=== PATIENT | female | born 1940 | race Caucasian/White ===

== ENCOUNTER 2019-08-26 14:54 | Outpatient (CLI) | payer MEDICARE, SELFPAY | END 2019-08-26 14:55 | disposition home or self-care (01) | LOC: CHSCARD 14:56 | PROVIDERS: PCP Internal Medicine; Visit Provider Internal Medicine | DX: I49.9 Cardiac arrhythmia, unspecified (principal) | CPT/HCPCS: 93225; 93226 ==

== ENCOUNTER 2019-09-21 21:55 | Emergency (ER) | payer MEDICARE, SELFPAY ==
--- NOTE | ~2019-09-21 | CT_ITS ---
EXAMINATION: CT brain wo con DATE: 09/21/2019 22:44 INDICATION: Presyncope TECHNIQUE: Computed tomography (CT) of the head was performed without intravenous contrast. Sagittal and coronal reconstructions were performed. The mA was adjusted according to patient size. Iterative reconstruction technique was employed. The dose-length product was 605.33 mGy-cm. COMPARISON: head CT dated 11/18/2018 FINDINGS: No acute intracranial hemorrhage, acute infarction or abnormal extra axial fluid collection. There is mild scattered white matter hypoattenuation consistent with chronic small vessel ischemic disease. S ymmetric prominence of the sulci consistent with mild age-appropriate diffuse cerebral volume loss. V entricles are normal and symmetric. No mass/mass effect. Changes of bilateral intraocular lens replac ement. The orbits and mastoid air cells are normal. Mild mucosal thickening the bilateral ethmoid sin uses. Intracranial calcified cerebral atherosclerosis is noted. IMPRESSION: 1. No acute intracranial process. 2. Age-related changes including mild to moderate diffuse volume loss and mild scattered white matter hypoattenuation consistent with chronic small vessel ischemic disease. Reviewed, dictated and finalized at location A. CIATE MEDICAL DIRECTOR IMPRESSION: 1. No acute intracranial process. 2. Age-related changes including mild to moderate diffuse volume loss and mild scattered white matter hypoattenuation consistent with chronic small vessel isc hemic disease.
--- NOTE | ~2019-09-21 | XR_ITS ---
EXAMINATION: XR chest 1V portable DATE: 09/21/2019 22:44 INDICATION: Generalized weakness TECHNIQUE: frontal view of the chest was obtained. COMPARISON: Chest radiograph dated 10/08/2016 FINDINGS: The lungs remain clear with no focal airspace opacities, pulmonary edema, pleural effusion or pneumot horax. The cardiomediastinal silhouette is normal. Moderate thoracic spondylosis. IMPRESSION: 1. No acute cardiopulmonary disease. Reviewed, dictated and finalized at location A. AURANT LINE SERVER
[2019-09-21 21:55] VITALS: BP 132/75; PULSE 80; RESP 28; TEMP 36.7; O2SAT 100
--- NOTE | 2019-09-21 22:08 | ECG_ITS ---
Measurements Intervals [place] Rate: 80 P: [place]: 0 QRS: -35 QRSD: 98 T: 6 QT: 392 QTc: 453 Interpretive Statements SINUS RHYTHM WITH SINUS ARRHYTHMIA ATRIAL PREMATURE COMPLEXES LEFT AXIS DEVIATION LOW QRS VOLTAGE IN PRECORDIAL LEADS BORDERLINE ST-T WAVE ABNORMALITY- INFERIOR LEADS BASELINE ARTIFACT- I, II, III, AVR, AVL, AVF, V4-V6 BORDERLINE ECG Electronically Signed On 09-22-2019 6:57:54 DEBURRER STRIP by Carson Ochoa D.O.
--- NOTE | 2019-09-21 22:37 | ED.GENADULT ---
HPI - General Adult General Chief complaint: Weakness Stated complaint: amb Source: patient and family Mode of arrival: EMS Limitations: other (expressive aphasia) History of Present Illness HPI narrative: Shivering all day today, felt cold. AT 21:00 while brushing teeth became weak, felt lightheaded, fell back, being held by but hit back of her head on tile. believes she was unconscious for brief period. No seizure activity. Received a shingles vaccine in the right deltoid this AM. Within an hour she began having sharp shoulder pain rated #7/10, made worse with movement. states 10/2018 she had an episode where she had trouble saying things, e.g. her daughter's name. This was assoc. with a migraine headche where she could not say the name of her daughter. Transferred to [facility]. Symptoms resolved within hours. Dx. as migraine related episode. Related Data Home Medications Medication Instructions Recorded Confirmed aspirin [Aspirin Low Dose] 81 mg PO DAILY 09/21/19 09/21/19 cranberry 500 mg PO DAILY 09/21/19 09/21/19 lisinopril 10 mg PO DAILY 09/21/19 09/21/19 metoprolol succinate 12.5 mg PO DAILY 09/21/19 09/21/19 ravzdkegoeme-Zo-lmfu-minerals 1 tablet PO DAILY 09/21/19 09/21/19 [Multiple Vitamin, Womens] Allergies Allergy/AdvReac Type Severity Reaction Status Date / Time No Known Allergies Allergy Verified 09/21/19 22:41 Review of Systems Constitutional: Constitutional: Reports as per HPI and Reports headache(s) (not today) Eyes: Eyes: Denies blurry vision ENT: Reports system reviewed and no additional complaints, except as documented Cardiovascular: Cardiovascular: Denies chest pain, Denies rapid heart rate, Denies leg edema and Denies dyspnea Respiratory: Respiratory: Denies chest congestion and Denies cough Gastrointestinal: Gastrointestinal: Denies abdominal pain, Denies diarrhea, Denies vomiting and Reports other (nausea) Genitourinary: Genitourinary: Denies dysuria Musculoskeletal: Musculoskeletal: Reports no additional musculoskeletal complaints Integumentary/Breasts: Skin/Breast: Denies rash Neurologic: Reports system reviewed and no additional complaints, except as documented Psychiatric: Psychiatric: Denies anxiety and Denies depression Endocrine: Endocrine: Denies flushing Hematologic/Lymphatic: Hematologic/Lymphatic: Denies easy bleeding and Denies easy bruising Allergic/Immunologic: Allergic/Immunologic: Denies urticaria PMFSH Past Medical History Medical History (Updated 09/22/19 @ 04:29 by Misbah Winters MD) Atrial fibrillation Hypertension Migraine Transient global amnesia Social History Social History (Updated 09/22/19 @ 01:26 by Misbah Winters MD) Additional living arrangements comments: Lives with Gender identity (if verbalized by the patient): Female Exam Narrative: Exam Narrative: On arrival pt. alert and oriented, with occasional difficulties with word finding. Holding left arm adducted and internally rotated. Const: General: cooperative Nutritional Appearance: well nourished Orientation/consciousness: patient oriented x3 Limitations: physical limitations (c/o pain with movement of her left shoulder) HENMT: Head: normal to inspection, atraumatic, no contusions, no lacerations, no raccoon eyes, no scalp lesions and no scalp tenderness Ears: hearing grossly normal bilaterally and TM's normal bilaterally General nose exam: Normal external nose present Face and sinus: normal facial exam and sinuses nontender Mouth: Yes Normal oral and palatal mucosa present, Yes lip normal and Yes moist mucous membranes Throat: posterior oropharynx normal Eyes: General: appearance normal, both eyes and all related structures Visual Chowdary: normal visual chowdary by confrontation Alignment and Position: alignment normal Periorbital: periorbital findings normal Pupils: Equal, round and reactive pupils present EOM: EOMs intact
--- NOTE | 2019-09-21 22:40 | PC.NURSE ---
Pt's states pt did strike posterior aspect of head on tiled wall and possibly had LOC. States near syncope occurred at approx 2100. Also reports hx of transient amnesia diagnosed in October 2018.
[2019-09-21 22:56] LABS: Basophils Absolute Auto 0.03 K/mm3 (0.00-0.10); Basophils Percent Auto 0.2 % (0.0-1.0); Eosinophils Absolute Auto 0.01 K/mm3 (0.02-0.50); Eosinophils Percent Auto 0.1 % (1.0-6.0); Hematocrit 41.5 % (35.0-42.0); Hemoglobin 14.6 g/dL (11.7-13.8); Immature Granulocyte Absolute 0.11 K/mm3 (0.00-0.00); Immature Granulocyte Percent A 0.6 % (0.0-0.0); Lymphocytes Absolute Auto 1.07 K/mm3 (1.10-4.50); Lymphocytes Percent Auto 5.5 % (18.0-42.0); Mean Corpuscular HGB Conc 35.2 g/dL (32.0-36.0); Mean Corpuscular Hemoglobin 32.2 pg (27.0-31.0); Mean Corpuscular Volume 91.4 fL (78.0-102.0); Mean Platelet Volume 10.1 fl (9.2-11.8); Monocytes Absolute Auto 1.36 K/mm3 (0.10-0.90); Neutrophils Absolute Auto 16.9 K/mm3 (1.7-7.2); Neutrophils Percent Auto 86.6 % (50.0-70.0); Platelet Count Result 174 K/mm3 (150-420); Red Blood Count 4.54 M/mm3 (4.20-5.40); Red Cell Distribution Width 13.4 % (11.6-14.4); White Blood Count 19.5 K/mm3 (4.8-10.8)
[2019-09-21 23:13] LABS: Alanine Aminotransferase 38 U/L (14-59); Albumin Level 3.7 g/dL (3.4-5.0); Alkaline Phosphatase 65 U/L (46-116); Anion Gap 18.1 mmol/L (7-16); Aspartate Amino Transferase 40 U/L (15-37); Bilirubin,Total 1.2 mg/dL (0.00-1.00); Blood Urea Nitrogen 16 mg/dL (7-18); Calcium 9.1 mg/dL (8.5-10.1); Carbon Dioxide 21 mmol/L (21-32); Chloride 102 mmol/L (98-108); Estimated CRCL calculation 29 ml/min; Estimated Glomerular Filt Rate 47; Glucose 133 mg/dL (70-99); Osmolality Calculated 287 mOsm/kg (285-295); Potassium 4.1 mmol/L (3.5-5.1); Sodium 137 mmol/L (136-145); Total Protein 7.4 g/dL (6.4-8.2)
[2019-09-21 23:20] LABS: Troponin I < 0.02 ng/mL (0.00-0.056)
[2019-09-21 23:21] VITALS: BP 117/59; PULSE 90; RESP 24; O2SAT 99
--- NOTE | 2019-09-21 23:21 | PC.NURSE ---
Pt resting. AOx3. Speech clear. MAEx4. Awaiting dispo per ERP.
[2019-09-21 23:33] LABS: Lactic Acid 3.3 mmol/L (0.4-2.0)
--- NOTE | 2019-09-21 23:50 | PC.NURSE ---
Pt taken to bathroom via w/c. Gait steady. c/o pain to LUE at site of Shingles vaccine, otherwise no c/o.
[2019-09-21 23:56] LABS: Add Urine Microscopic? YES; Appearance Urine Clear (Clear); Bilirubin Urine Negative (Negative); Blood Urine Negative (Negative); Color Urine Yellow (Yellow); Glucose Urine UA Negative (Negative); Ketones Urine 1+ (Negative); Leukocyte Esterase Ur Trace LEU/UL (Negative); Nitrate Urine Negative (Negative); Protein Urine Negative (Negative); Specific Grav Ur 1.015 (1.010-1.020); Urobilinogen Urine 0.2 mg/dL (0.2-1.0); pH Urine 8.5 (5.0-8.0)
[2019-09-22] VITALS (8 sets, daily range): BP systolic 104–131; BP diastolic 57–82; PULSE 82–89; RESP 16–20; TEMP 37.6; O2SAT 98–100
[2019-09-22 00:02] LABS: Bacteria Urine Trace /hpf; RBC Urine 0-2 /hpf (0-2); Squamous Epithelial Cell Urine None seen /hpf (Few)
[2019-09-22] MEDS: ACETAMINOPHEN 325 MG TABLET PO (00:03)
--- NOTE | 2019-09-22 00:25 | PC.NURSE ---
Pt states LUE is feeling much better after receiving Tylenol. NADN. Waiting for dispo per ER physician.
[2019-09-22] MEDS: SODIUM CHLORIDE 0.9% IV 1,000 ML 500 ML IV CONT ×2 (00:32→03:09)
--- NOTE | 2019-09-22 00:41 | PC.NURSE ---
Pt sleeping, SpO2 85%. Arouses easily to verbal stim. SpO2 immediately increased to 96% RA upon waking pt. Placed on 2L via NC at this time.
--- NOTE | 2019-09-22 00:59 | PC.NURSE ---
Dr Winters at bedside talking with pt and re: plan of care.
--- NOTE | 2019-09-22 01:13 | PC.NURSE ---
[facility] called per Dr Winters's request. Per Zaina, [facility], no beds currently available at this time. Will place pt on wait list.
--- NOTE | 2019-09-22 01:18 | PC.NURSE ---
Call placed to [facility] electrician powerhouse per Dr Winters request. Waiting call back from hospitalist.
--- NOTE | 2019-09-22 02:16 | PC.NURSE ---
To bathroom via w/c. Gait steady while in bathroom. Return to room. Spoke with housekeeper head at [facility] who states hospitalist is with a critical pt and will call as soon as she is available. Dr Winters and pt aware.
--- NOTE | 2019-09-22 02:54 | PC.NURSE ---
CM now shows NSR with occasional PAC, rate 87. Dr Winters aware.
--- NOTE | 2019-09-22 02:55 | PC.NURSE ---
Read back verbal order Dr Winters: re-assess lung sounds, if clear then infuse second liter NS at 500mL/hr.
--- NOTE | 2019-09-22 03:20 | PC.NURSE ---
[facility] returning call at this time.
--- NOTE | 2019-09-22 03:27 | PC.NURSE ---
Read back verbal order Dr Winters: increase IVF rate to w/o for remainder of second liter NS.
--- NOTE | 2019-09-22 03:39 | PC.NURSE ---
Dr Oneal speaking with Dr Winters at this time per [facility] hospitalist request.
--- NOTE | 2019-09-22 03:47 | PC.NURSE ---
Room assignment rcvd from [facility] hothouse worker. Face sheet faxed as requested.
--- NOTE | 2019-09-22 03:47 | PC.NURSE ---
Amb to bathroom with steady gait. Evans and soda provided upon return to exam room. Awaiting room assignment at [facility].
--- NOTE | 2019-09-22 04:05 | PC.NURSE ---
Report to ATA Burt 2nd floor at [facility].
--- NOTE | 2019-09-22 04:15 | PC.NURSE ---
[facility] called for transport to [facility].
[2019-09-22] MEDS: SODIUM CHLORIDE 0.9% IV 1,000 ML 125 ML IV CONT (04:30)
--- NOTE | 2019-09-22 04:30 | PC.NURSE ---
Report to [facility]. Care transferred at this time.
== END 2019-09-22 04:43 | disposition short-term general hospital (02) ==
PROVIDERS: Emergency Provider Family Medicine; PCP Internal Medicine
DX: G45.9 Transient cerebral ischemic attack, unspecified (principal); A41.9 Sepsis, unspecified organism; R55 Syncope and collapse; I48.91 Unspecified atrial fibrillation; I10 Essential (primary) hypertension
CPT/HCPCS: 36415; 70450; 71045; 80053; 81001; 83605; 84484; 85025; 87040; 93005; 96361; 96365; 96367; 99285; A9270; J2543; J3370; J7030

== ENCOUNTER 2019-09-22 05:20 | Inpatient (IN) | payer MEDICARE, SELFPAY ==
[2019-09-22] VITALS (8 sets, daily range): BP systolic 120–127; BP diastolic 42–78; PULSE 77–119; RESP 18–20; TEMP 36.4–37.7; O2SAT 98–100; BMI 27.8
--- NOTE | 2019-09-22 | ECHO_ITS ---
Patient Info Name: Lucia Salas Age: 79 years : 1940 Gender: Female Ht: 60 in Wt: 143 lbs BSA: 1.68 m2 HR: 76 bpm BP: 124 / 47 mmHg Heart Rhythm: Sinus Arrhythmia Technical Quality: Fair Exam Date: 09/22/2019 10:24 AM Exam Location: [facility] Card Pulmonary Patient Status: Inpatient Admit Date: 09/22/2019 Staff Ordering Physician: Mary Jo Wolf PA-C Computer Recycling Worker: Sam Del Cid RDCS Attending Provider: Mary Jo Wolf PA-C Exam Type: CA echo doppler color flow Study Info Indications R55 - Syncope and collapse Complete two-dimensional, color flow and Doppler transthoracic echocardiogram is performed. History/Risk Factors Syncope and collapse; possible TIA, Afib. Summary 1. Left ventricular chamber dimension is normal. 2. Left ventricular systolic function is normal, estimated at 60-65%. 3. The left ventricular diastolic function is grade I diastolic dysfunction. 4. E/e' 8 is minimally elevated. 5. Left atrial chamber dimension is mildly enlarged. 6. There is mild tricuspid valve regurgitation. 7. No pulmonary hypertension, estimated pulmonary arterial systolic pressure is 35 mmHg. 8. Small atheroma in anterior aortic root. Left Ventricle E/e' 8 is minimally elevated. Left ventricular chamber dimension is normal. Left ventricular systolic function is normal, estimated at 60-65%. The left ventricular diastolic function is grade I diastolic dysfunction. Right Ventricle Right ventricular chamber dimension is normal. Right ventricular systolic function is normal. Left Atria Left atrial chamber dimension is mildly enlarged. Right Atria Right atrial chamber dimension is normal. Aortic Valve The aortic valve is trileaflet. There is no aortic valve stenosis. There is no aortic valve regurgitation. Pulmonic Valve There is no pulmonic regurgitation. Mitral Valve There is no mitral valve stenosis. There is no mitral valve regurgitation. Tricuspid Valve There is mild tricuspid valve regurgitation. No pulmonary hypertension, estimated pulmonary arterial systolic pressure is 35 mmHg. Pericardium/Pleural There is no pericardial effusion. Inferior Vena Cava Normal inferior vena cava with >50% collapse upon inspiration consistent with normal right atrial pressure, 5 mmHg. Aorta Small atheroma in anterior aortic root. The aortic root size at the sinus of Valsalva is normal. Left Ventricular Outflow Tract Name Value Normal LVOT 2D LVOT Diameter 1.8 cm LVOT Doppler LVOT Peak Gradient 9 mmHg LVOT Mean Gradient 5 mmHg LVOT VTI 28 cm LVOT VTI/AV VTI Ratio 0.9 LVOT Stroke Volume 72 ml Mitral Valve Name Value Normal MV Doppler MV Decel [place] 2
--- NOTE | ~2019-09-22 | US_ITS ---
EXAMINATION: US carotid duplex BI DATE: 09/22/2019 14:46 INDICATION: Syncope. TECHNIQUE: Grayscale, color Doppler, and pulsed Doppler images of the cervical carotid arteries were obtained. The degree of vessel stenosis is placed in one of the following categories: normal, <50%, 5 0-69%, >=70% but less than near-occlusion, near-occlusion, or total occlusion. Note that percent sten osis relative to normal distal artery lumen diameter is indirectly measured from velocity measurement s as described by Rogelio, et al. Radiology 2003; 229:340-346. COMPARISON: Ultrasound 08/31/2018 FINDINGS: RIGHT: The right common carotid artery (CCA) peak systolic velocity (PSV) is 65 cm/s. The right internal car otid artery (ICA) PSV is 84 cm/s. The right ICA end-diastolic velocity (EDV) is 26 cm/s. The right IC A/CCA PSV ratio is 1.3. Grayscale and color Doppler images yield an estimate of <50% diameter reducti on from plaque in the ICA. There is antegrade flow in the right vertebral artery. LEFT: The left CCA PSV is 83 cm/s. The left ICA PSV is 97 cm/s. The left ICA EDV is 29 cm/s. The left ICA/C CA PSV ratio is 1.2. Grayscale and color Doppler images yield an estimate of <50% diameter reduction from plaque in the ICA. There is antegrade flow in the left vertebral artery. IMPRESSION: 1. <50% stenosis in the right internal carotid artery. 2. <50% stenosis in the left internal carotid artery. Reviewed, dictated and finalized at location A. REEL OPERATOR
--- NOTE | ~2019-09-22 | XR_ITS ---
EXAMINATION: XR shoulder LT min 2V DATE: 09/22/2019 07:37 INDICATION: Septic arthritis of left shoulder. TECHNIQUE: 4 views of left shoulder were obtained. COMPARISON: None. FINDINGS: Bone alignment is normal. No fracture. There is mild osteoarthritis of glenohumeral joint a nd acromioclavicular joint. There is mild atelectasis in left lower lung zone. IMPRESSION: 1. Mild polyarticular osteoarthritis. Reviewed, dictated and finalized at location A. ATIONAL AID
--- NOTE | 2019-09-22 05:50 | ADMGEN ---
This patient, Lucia Salas, was admitted to Medical Room 252-01. Patient/family oriented to hospital policies and general routines including ID bracelet, bed and alarms, visiting hours, pain management, procedures, bathroom and other care routines, personal items, smoking policy, room service/diet, and visiting hours. Valuables list has been completed. Information on how to activate the Rapid Response Team has been discussed. Patient/Family are encouraged to report perceived risks to care and to ask questions if they do not understand what they are told or what they should do.
[2019-09-22] MEDS: SODIUM CHLORIDE 0.9% IV 1,000 ML 100 ML IV CONT ×2 (07:57→18:35)
[2019-09-22] MEDS: ACETAMINOPHEN 325 MG TABLET 650 MG PO (08:07)
[2019-09-22] MEDS: METOPROLOL SUCCINATE EXT REL 12.5 MG TABCR PO (08:08)
[2019-09-22] MEDS: lisinopriL 10 MG TABLET PO (08:08)
[2019-09-22 08:21] LABS: Basophils Percent Auto 0.1 % (0.2-1.2); Eosinophils Percent Auto 0.1 % (0-4.4); Hematocrit 37.5 % (37.0-47.0); Hemoglobin 12.8 g/dL (12.0-15.0); Immature Granulocyte Absolute 0.08 K/mm3 (0.00-0.031); Immature Granulocyte Percent A 0.5 % (0-0.5); Lymphocytes Absolute Auto 1.48 K/mm3 (0.9-3.2); Lymphocytes Percent Auto 9.4 % (18.3-44.2); Mean Corpuscular HGB Conc 34.1 g/dl (32-36); Mean Corpuscular Hemoglobin 31.5 pg (26-34); Mean Corpuscular Volume 92.4 fl (80-100); Mean Platelet Volume 10.2 fl (7.4-10.4); Monocytes Absolute Auto 1.3 K/mm3 (0.1-0.6); Monocytes Percent Auto 8.2 % (2.6-8.5); Neutrophils Absolute Auto 12.9 K/mm3 (1.3-6.7); Neutrophils Percent Auto 81.7 % (45.5-73.1); Platelet Count Result 162 k/mm3 (150-375); Red Blood Count 4.06 M/mm3 (4.2-5.4); Red Cell Distribution Width 13.8 % (11.5-14.5); White Blood Count 15.8 K/mm3 (4.5-10.0)
[2019-09-22 08:36] LABS: Alanine Aminotransferase 58 U/L (4-35); Albumin Level 3.2 g/dL (3.5-5.1); Alkaline Phosphatase 61 U/L (38-126); Aspartate Amino Transferase 79 U/L (14-36); Bilirubin,Total 1.1 mg/dL (0.2-1.3); Blood Urea Nitrogen 11 mg/dL (7-17); Calcium 8.2 mg/dL (8.4-10.2); Carbon Dioxide 21 mmol/L (22-30); Chloride 106 mmol/L (98-107); Estimated CRCL calculation 40 ml/min; Estimated Glomerular Filt Rate > 60; Glucose 112 mg/dL (65-105); Magnesium 1.9 mg/dL (1.6-2.3); Phosphorus 2.9 mg/dL (2.5-4.5); Potassium 3.8 mmol/L (3.4-5.0); Sodium 137 mmol/L (137-145)
--- NOTE | 2019-09-22 11:23 | PM.IMHP ---
H&P: HPI History of Present Illness Chief complaint: Weakness, left shoulder pain Narrative: Date of Service 09/22/19 The supervising physician for this history and physical is Dr Liu. Ms. Salas is a relatively healthy 79-year-old female with history of hypertension and migraines who presented to the ER at [facility] for evaluation of weakness. She noted that she received a shingles vaccine to her left upper arm yesterday and she developed pain in her left shoulder joint about 1 hour after her vaccination. Her left shoulder pain persisted despite using an ice pack and Tylenol. She notes that she was feeling feverish and having chills at home yesterday but did not take her temperature. Routine labs at [place] showed leukocytosis WBC [id number] which, along with her significant left shoulder pain with any movement, raised concern for an early infection in the joint. Dr. Oneal was contacted and she was transferred to [facility] for orthopedic consultation. She describes a long history of complex migraines dating back to age 16 and notes that she did have a migraine yesterday as well. She describes that she may have passed out briefly yesterday. She felt lightheaded while standing in the bathroom and leaned backwards, her mostly caught her but she did hit the back of her head on the floor. Her family noted that she was a little confused once she regained consciousness. These symptoms have resolved she is back at her baseline this morning. She denies any headaches this morning. She denies any nausea or vomiting and has been tolerating oral intake. She recently had outpatient cardiac workup by Dr. Ricki Lane's office at [facility] in [place]. She notes that her PCP, Dr Cheney, noted her heart skipping beats . She wore a holter monitor earlier this month and was referred to Dr Lane with [facility]. She had her appointment with [facility] in the last 1 week and had an echocardiogram with bubble study on 09/19/19. She has not yet heard back from the trash hauler's office regarding these results. Scanned copy of her Holter monitor results are in the EMR. She denies any chest pain, palpitations, or sensation of rapid heart beats. Today she continues with significant left shoulder pain with much of any movement and she is admitted for management of same. Review of Systems Review of Systems: Narrative: She reports significant left anterior shoulder pain with minimal movement. She otherwise offers no complaints. She specifically denies headache today, dizziness, chest pain, shortness of breath, palpitations, calf tenderness, nausea, vomiting, abdominal pain, diarrhea, constipation, hematochezia, melena, dysuria, or hematuria. Twelve systems were reviewed with pertinent positives and negatives as per HPI. [facility] Past Medical History Medical History (Updated 09/22/19 @ 15:10 by Maldonado Oneal MD) Atrial fibrillation She is unsure whether she was told she had atrial fibrillation in the past. Hypertension Migraine Synovitis of shoulder Transient global amnesia Had an episode 10/2018 of transient aphasia that resolved spontaneously and was felt may have been related to her complex migraines. Surgical History Surgical History H/O breast biopsy Benign H/O cataract removal with insertion of prosthetic lens Around 2008, Bilateral History of mandibular surgery TMJ repair Previous back surgery Around 2016 Family History Family History Mother Heart failure Social History Social History (Updated 09/22/19 @ 11:57 by Mary Jo Wolf PA-C) Social History: Ms. Salas lives at home with her in [place]. 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 She reports around 2 drinks of wine per week; never smoker; no other subst
--- NOTE | 2019-09-22 15:06 | PM.PNORT ---
Progress Note: A&P Assessment and Plan (1) Left shoulder pain: Qualifiers: Chronicity: acute Qualified Code(s): M25.512 - Pain in left shoulder Code(s): M25.512 - Pain in left shoulder Status: Acute (2) Synovitis of shoulder: Code(s): M65.819 - Other synovitis and tenosynovitis, unspecified shoulder Status: Acute Assessment and Plan: patient admitted for elevated white count and low grade fever. T-max of 99.9? over the past 24 hours. White count has improved this morning. Still with severe pain anterolateral left shoulder. Not in the site of the shingles injection but same shoulder. Appears to be severe synovitis but not sure of the connection with the shingles injection. Elevated white count and low grade fever is of concern however there is no redness, swelling or warmth of the left shoulder. Only pain with passive and active motion. Patient denies injury. Antibiotics have been started. We will add anti-inflammatory to the medication regimen. Ice to left shoulder. Continue to follow at this time as it does not appear to be septic arthritis. Subjective Subjective Date/Time Seen: 09/22/19 12:06 79-year-old woman admitted from [facility] yesterday. Asked to see her for left shoulder pain. Patient states she had a shingles vaccine shot in the left posterior deltoid on September 20, 2019 at [facility]. She noted an odd feeling at the time of the shot. Approximately an hour later developed pain over the anterior lateral aspect of the left shoulder. Pain with any movement of the arm. Denies numbness or tingling. Pain progressively got worse over the next 24 hours and she presented to the emergency room in [place]. Found to have low-grade fever and a white count that was elevated and she was transferred to [place] for further evaluation. Patient states her pain is essentially the same. It is sharp over the anterolateral aspect. She has severe pain when she moves the arm. No prior problems with the shoulder. She has had fever and chills well at home. No troubles eating or voiding. Review of Systems Constitutional: Constitutional: Denies fever(s) Eyes: Eyes: Denies blurry vision ENT: Reports Normal hearing present Cardiovascular: Cardiovascular: Denies chest pain and Denies dyspnea Respiratory: Respiratory: Denies dyspnea and Denies wheezing Gastrointestinal: Gastrointestinal: Denies abdominal pain Genitourinary: Genitourinary: Denies urinary urgency Musculoskeletal: Musculoskeletal: Reports as per HPI and Denies numbness Integumentary/Breasts: Skin/Breast: Denies changing lesions and Denies sores Neurologic: Reports Normal hearing present, Denies behavioral changes, Denies confusion, Denies numbness and Denies convulsions Psychiatric: Psychiatric: Denies behavioral changes, Denies confusion and Denies hallucinations Endocrine: Endocrine: Denies heat intolerance Hematologic/Lymphatic: Hematologic/Lymphatic: Denies easy bleeding Allergic/Immunologic: Allergic/Immunologic: Denies wheezing Exam Const: General: healthy appearing; No in distress or confusion Orientation/consciousness: oriented to person, oriented to place, oriented to time and No confusion HENMT: Head: normal to inspection, normocephalic and atraumatic Eyes: Conjunctivae: conjunctivae normal Sclera: sclerae normal Neck: Neck: supple and nontender Resp: Effort & Inspection: normal respiratory effort and no audible wheezes Cardio: Rate: regular rate Rhythm: regular rhythm Skin: General skin exam: no rashes or lesions noted Neuro: General: oriented to person, oriented to place, oriented to time and No confusion Extrem: Right upper extremity: shoulder/upper arm axillary nerve sensory function normal, normal ROM (FF 130, Abd 120, ER 70, IR T7) and other (RC 5/5, Bicep 5/5, Deltoid 5/5, ER 5/5); no tenderness and no swelling, elbow/forearm normal ROM; no tenderness and no swelling, wrist gianluca
--- NOTE | 2019-09-22 19:09 | PC.NURSE ---
On 09/22/2019, the License pending nurse, Marvin Schumacher RN provided care and completed [employer] documentation on this patient. I have reviewed the documentation and agree with the findings.
[2019-09-23] VITALS: PULSE 74
[2019-09-23] MEDS: SODIUM CHLORIDE 0.9% IV 1,000 ML 100 ML IV CONT (02:59)
[2019-09-23 04:00] VITALS: PULSE 75
[2019-09-23 05:37] LABS: Basophils Absolute Auto 0.1 K/mm3 (0.0-0.1); Basophils Percent Auto 0.4 % (0.2-1.2); Eosinophils Absolute Auto 0.2 K/mm3 (0-0.3); Hematocrit 37.2 % (37.0-47.0); Hemoglobin 12.3 g/dL (12.0-15.0); Immature Granulocyte Absolute 0.04 K/mm3 (0.00-0.031); Immature Granulocyte Percent A 0.4 % (0-0.5); Lymphocytes Absolute Auto 1.83 K/mm3 (0.9-3.2); Lymphocytes Percent Auto 16.4 % (18.3-44.2); Mean Corpuscular HGB Conc 33.1 g/dl (32-36); Mean Corpuscular Hemoglobin 31.3 pg (26-34); Mean Corpuscular Volume 94.7 fl (80-100); Mean Platelet Volume 10.9 fl (7.4-10.4); Monocytes Absolute Auto 0.9 K/mm3 (0.1-0.6); Monocytes Percent Auto 8.4 % (2.6-8.5); Neutrophils Absolute Auto 8.1 K/mm3 (1.3-6.7); Neutrophils Percent Auto 72.4 % (45.5-73.1); Platelet Count Result 148 k/mm3 (150-375); Red Blood Count 3.93 M/mm3 (4.2-5.4); Red Cell Distribution Width 14.2 % (11.5-14.5); White Blood Count 11.1 K/mm3 (4.5-10.0)
[2019-09-23 05:44] LABS: Blood Urea Nitrogen 9 mg/dL (7-17); Calcium 8.3 mg/dL (8.4-10.2); Carbon Dioxide 23 mmol/L (22-30); Chloride 107 mmol/L (98-107); Estimated CRCL calculation 40 ml/min; Estimated Glomerular Filt Rate > 60; Glucose 90 mg/dL (65-105); Phosphorus 2.6 mg/dL (2.5-4.5); Potassium 3.7 mmol/L (3.4-5.0); Sodium 138 mmol/L (137-145)
[2019-09-23 06:00] VITALS: BP 130/67; PULSE 77; RESP 20; TEMP 36.2; O2SAT 99
[2019-09-23 08:00] VITALS: PULSE 77; RESP 20; O2SAT 99
[2019-09-23] MEDS: lisinopriL 10 MG TABLET PO (08:35)
[2019-09-23] MEDS: METOPROLOL SUCCINATE EXT REL 12.5 MG TABCR PO (08:36)
--- NOTE | 2019-09-23 10:34 | PM.DS ---
DS: Diagnosis Admitting Diagnosis Admitting Diagnosis: Pain in left shoulder Discharge Diagnosis (1) Left shoulder pain: Qualifiers: Chronicity: acute Qualified Code(s): M25.512 - Pain in left shoulder Code(s): M25.512 - Pain in left shoulder Status: Acute Assessment and Plan: Date of Service 09/23/19 Ms. Salas is a pleasant 79yo F with hypertension and a longstanding history of migraines who presented to the ED at [facility] for evaluation of weakness. She noted that she received a shingles vaccine to her left upper arm day prior to arrival and she developed pain in her left shoulder joint about 1 hour after her vaccination. Her left shoulder pain persisted despite using an ice pack and Tylenol. She notes that she was feeling feverish and having chills at home yesterday but did not take her temperature. Routine labs at [place] showed leukocytosis WBC [id number] which, along with her significant left shoulder pain with any movement, raised concern for an early infection in the joint. She was started on IV vancomycin and Zosyn at that time. Dr. Oneal was contacted and she was transferred to [place] for orthopedic consultation. Exam found her to be exquisitely tender in the left shoulder with both passive and active range of motion, but the joint itself was not particularly swollen, red, or hot to touch. Leukocytosis improved. XR left shoulder demonstrated mild polyarticular osteoarthritis. It was ultimately felt that the joint itself was not infected and Dr Oneal provided a diagnosis of synovitis. She was started on ibuprofen and provided an ice pack. Her pain was a bit improved the following day and she was discharged in stable condition with an appointment to see Dr Oneal in the office in 2 days 09/26/19. She describes a long history of complex migraines dating back to age 16 and notes that she did have a migraine day prior to arrival as well. She describes that she may have passed out briefly. She felt lightheaded while standing in the bathroom and leaned backwards, her mostly caught her but she did hit the back of her head on the floor. Her family noted that she was a little confused once she regained consciousness. These symptoms had resolved she was back at her baseline prior to arrival at [place]. She denied any headaches now, denied any nausea or vomiting and had been tolerating oral intake. CT brain at [place] showed age-related changes consistent with small vessel ischemic disease without any acute intracranial abnormalities. Carotid dopplers were within normal limits. She recently had outpatient cardiac workup by Dr. Ricki Lane's office at [facility] in [place] this week. She notes that her PCP, Dr Cheney, noted her heart skipping beats . She wore a holter monitor earlier this month and was referred to Dr Lane with [facility]. She had her appointment with [facility] in the last 1 week and had an echocardiogram with bubble study on 09/19/19. She has not yet heard back from the ed teacher's office regarding these results. Scanned copy of her Holter monitor results are in the EMR. She did have a 6-beat run of ventricular ectopy demonstrated on telemetry here which was also seen on her recent Holter, with which she was completely asymptomatic. She denied any chest pain, palpitations, or sensation of rapid heart beats. She was hemodynamically stable for discharge 09/23/19 with an appointment to see Dr Oneal in the office 09/26/19. She was instructed to follow up with Dr Lane's office regarding the arrhythmia as well as her PCP. Patient presents with moderate to severe left shoulder pain after having a shingles vaccine to the left deltoid same day with associated fever and chills. Pain is worse with movement. Unsure of relation to the vaccine. Transferred here from [place] for orthopedic consult. Dr Oneal gives the diagnosis of synovitis and recommends anti-in
--- NOTE | 2019-09-27 16:02 | PM.CNOR ---
Assessment and Plan Assessment and plan (1) Synovitis of shoulder: Code(s): M65.819 - Other synovitis and tenosynovitis, unspecified shoulder Status: Acute Assessment and Plan: Assessment and Plan (1) Left shoulder pain: Qualifiers: Chronicity: acute Qualified Code(s): M25.512 - Pain in left shoulder Code(s): M25.512 - Pain in left shoulder Status: Acute (2) Synovitis of shoulder: Code(s): M65.819 - Other synovitis and tenosynovitis, unspecified shoulder Status: Acute Assessment and Plan: patient admitted for elevated white count and low grade fever. T-max of 99.9? over the past 24 hours. White count has improved this morning. Still with severe pain anterolateral left shoulder. Not in the site of the shingles injection but same shoulder. Appears to be severe synovitis but not sure of the connection with the shingles injection. Elevated white count and low grade fever is of concern however there is no redness, swelling or warmth of the left shoulder. Only pain with passive and active motion. Patient denies injury. Antibiotics have been started. We will add anti-inflammatory to the medication regimen. Ice to left shoulder. Continue to follow at this time as it does not appear to be septic arthritis. (2) Left shoulder pain: Qualifiers: Chronicity: acute Qualified Code(s): M25.512 - Pain in left shoulder Code(s): M25.512 - Pain in left shoulder Status: Acute History of Present Illness HPI Consult date: 09/22/19 Requesting physician: Rei Manriquez MD Consult reason: joint pain (left shoulder) Chief complaint: Weakness, left shoulder pain Narrative: Date/Time Seen: 09/22/19 12:06 79-year-old woman admitted from [facility] yesterday. Asked to see her for left shoulder pain. Patient states she had a shingles vaccine shot in the left posterior deltoid on September 20, 2019 at [facility]. She noted an odd feeling at the time of the shot. Approximately an hour later developed pain over the anterior lateral aspect of the left shoulder. Pain with any movement of the arm. Denies numbness or tingling. Pain progressively got worse over the next 24 hours and she presented to the emergency room in [place]. Found to have low-grade fever and a white count that was elevated and she was transferred to [place] for further evaluation. Patient states her pain is essentially the same. It is sharp over the anterolateral aspect. She has severe pain when she moves the arm. No prior problems with the shoulder. She has had fever and chills well at home. No troubles eating or voiding. Review of Systems Constitutional: Constitutional: Denies fever(s) Eyes: Eyes: Denies blurry vision ENT: Reports Normal hearing present Cardiovascular: Cardiovascular: Denies chest pain and Denies dyspnea Respiratory: Respiratory: Denies dyspnea and Denies wheezing Gastrointestinal: Gastrointestinal: Denies abdominal pain Genitourinary: Genitourinary: Denies urinary urgency Musculoskeletal: Musculoskeletal: Reports as per HPI and Denies numbness Integumentary/Breasts: Skin/Breast: Denies changing lesions and Denies sores Neurologic: Reports Normal hearing present, Denies behavioral changes, Denies confusion, Denies numbness and Denies convulsions Psychiatric: Psychiatric: Denies behavioral changes, Denies confusion and Denies hallucinations Endocrine: Endocrine: Denies heat intolerance Hematologic/Lymphatic: Hematologic/Lymphatic: Denies easy bleeding Allergic/Immunologic: Allergic/Immunologic: Denies wheezing [facility] Past Medical History Medical History Atrial fibrillation She is unsure whether she was told she had atrial fibrillation in the past. Hypertension Migraine Synovitis of shoulder Transient global amnesia Had an episode 10/2018 of transient aphasia that resolved spontaneously and was
--- NOTE | 2019-09-29 14:10 | PC.NURSE ---
Blood cx is negative.
== END 2019-09-23 12:50 | disposition home or self-care (01) | DRG 558 ==
PROVIDERS: Physician Assistant; Admitting Provider Internal Medicine; PCP Internal Medicine; Visit Provider Family Medicine
DX: M65.812 Other synovitis and tenosynovitis, left shoulder (principal); R55 Syncope and collapse; G43.909 Migraine, unspecified, not intractable, without status migrainosus; R94.31 Abnormal electrocardiogram [ECG] [EKG]; I10 Essential (primary) hypertension; I48.91 Unspecified atrial fibrillation; Z98.42 Cataract extraction status, left eye; Z98.41 Cataract extraction status, right eye
CPT/HCPCS: 36415; 73030; 80048; 80053; 83735; 84100; 85025; 93306; 93880; 96361; 96365; A9270; G0378; J2543; J7030

== ENCOUNTER 2020-05-15 07:48 | Outpatient (CLI) | payer MEDICARE, SELFPAY ==
[2020-05-15 08:10] LABS: Basophils Absolute Auto 0.09 K/mm3 (0.00-0.10); Basophils Percent Auto 1.6 % (0.0-1.0); Eosinophils Absolute Auto 0.24 K/mm3 (0.02-0.50); Eosinophils Percent Auto 4.2 % (1.0-6.0); Hematocrit 41.6 % (35.0-42.0); Hemoglobin 13.9 g/dL (11.7-13.8); Immature Granulocyte Absolute 0.01 K/mm3 (0.00-0.00); Immature Granulocyte Percent A 0.2 % (0.0-0.0); Lymphocytes Absolute Auto 1.59 K/mm3 (1.10-4.50); Lymphocytes Percent Auto 27.9 % (18.0-42.0); Mean Corpuscular HGB Conc 33.4 g/dL (32.0-36.0); Mean Corpuscular Hemoglobin 32.2 pg (27.0-31.0); Mean Corpuscular Volume 96.3 fL (78.0-102.0); Mean Platelet Volume 10.5 fl (9.2-11.8); Monocytes Absolute Auto 0.54 K/mm3 (0.10-0.90); Monocytes Percent Auto 9.5 % (2.0-11.0); Neutrophils Absolute Auto 3.2 K/mm3 (1.7-7.2); Neutrophils Percent Auto 56.6 % (50.0-70.0); Platelet Count Result 207 K/mm3 (150-420); Red Blood Count 4.32 M/mm3 (4.20-5.40); Red Cell Distribution Width 13.7 % (11.6-14.4); White Blood Count 5.7 K/mm3 (4.8-10.8)
[2020-05-15 08:11] LABS: Appearance Urine Clear (Clear); Bilirubin Urine Negative (Negative); Color Urine Yellow (Yellow); Glucose Urine UA Negative (Negative); Ketones Urine Negative (Negative); Leukocyte Esterase Ur Negative LEU/UL (Negative); Nitrate Urine Negative (Negative); Protein Urine Negative (Negative); Specific Grav Ur 1.025 (1.010-1.020); Urobilinogen Urine 0.2 mg/dL (0.2-1.0)
[2020-05-15 08:15] LABS: Add Urine Microscopic? YES; Bacteria Urine Trace /hpf; Blood Urine Trace-Intact (Negative); RBC Urine 0-2 /hpf (0-2); Squamous Epithelial Cell Urine Occasional /hpf (Few); WBC Urine 0-3 /hpf (0-3)
[2020-05-15 09:37] LABS: Alanine Aminotransferase 29 U/L (14-59); Albumin Level 3.7 g/dL (3.4-5.0); Alkaline Phosphatase 71 U/L (46-116); Anion Gap 11 mmol/L (8-16); Aspartate Amino Transferase 18 U/L (15-37); Bilirubin,Total 0.7 mg/dL (0.00-1.00); Blood Urea Nitrogen 22 mg/dL (7-18); Calcium 9.2 mg/dL (8.5-10.1); Carbon Dioxide 26 mmol/L (21-32); Chloride 105 mmol/L (98-108); Cholesterol 237 mg/dL (0-200); Estimated Glomerular Filt Rate 54; Free T4 Free Thyroxine 1.03 ng/dL (0.76-1.46); Glucose 81 mg/dL (70-99); HDL Direct 82 mg/dL (40-60); LDL Cholesterol Calculated 135 mg/dL (<130); Osmolality Calculated 296 mOsm/kg (285-295); Potassium 4.2 mmol/L (3.5-5.1); Sodium 142 mmol/L (136-145); Thyroid Stimulating Hormone 2.77 uIU/mL (0.36-3.74); Total Protein 6.9 g/dL (6.4-8.2); Triglycerides 101 mg/dL (0-150)
== END 2020-05-15 07:49 | disposition home or self-care (01) ==
LOC: CHSLAB 07:49
PROVIDERS: PCP Internal Medicine; Visit Provider Internal Medicine
DX: E78.5 Hyperlipidemia, unspecified (principal); I10 Essential (primary) hypertension
CPT/HCPCS: 36415; 80053; 80061; 81001; 84439; 84443; 85025

== ENCOUNTER 2020-11-07 07:24 | Outpatient (CLI) | payer MEDICARE, SELFPAY ==
[2020-11-07 07:38] LABS: Add Urine Microscopic? YES; Appearance Urine Clear (Clear); Basophils Absolute Auto 0.06 K/mm3 (0.00-0.10); Basophils Percent Auto 1.1 % (0.0-1.0); Bilirubin Urine Negative (Negative); Blood Urine 1+ (Negative); Color Urine Yellow (Yellow); Eosinophils Absolute Auto 0.19 K/mm3 (0.02-0.50); Eosinophils Percent Auto 3.6 % (1.0-6.0); Glucose Urine UA Negative (Negative); Hematocrit 40.4 % (35.0-42.0); Hemoglobin 13.5 g/dL (11.7-13.8); Immature Granulocyte Absolute 0.01 K/mm3 (0.00-0.00); Immature Granulocyte Percent A 0.2 % (0.0-0.0); Ketones Urine Negative (Negative); Leukocyte Esterase Ur Negative (Negative); Lymphocytes Absolute Auto 1.97 K/mm3 (1.10-4.50); Lymphocytes Percent Auto 36.8 % (18.0-42.0); Mean Corpuscular HGB Conc 33.4 g/dL (32.0-36.0); Mean Corpuscular Hemoglobin 31.4 pg (27.0-31.0); Mean Platelet Volume 10.2 fl (9.2-11.8); Monocytes Absolute Auto 0.52 K/mm3 (0.10-0.90); Monocytes Percent Auto 9.7 % (2.0-11.0); Neutrophils Absolute Auto 2.6 K/mm3 (1.7-7.2); Neutrophils Percent Auto 48.6 % (50.0-70.0); Nitrate Urine Negative (Negative); Platelet Count Result 188 K/mm3 (150-420); Protein Urine Negative (Negative); Red Cell Distribution Width 13.6 % (11.6-14.4); Specific Grav Ur 1.025 (1.010-1.020); Urobilinogen Urine 0.2 mg/dL (0.2-1.0); White Blood Count 5.4 K/mm3 (4.8-10.8); pH Urine 5.5 (5.0-8.0)
[2020-11-07 07:52] LABS: RBC Urine 0-2 /hpf (0-2); WBC Urine None seen /hpf (0-3)
[2020-11-07 07:53] LABS: Bacteria Urine Trace /hpf; Squamous Epithelial Cell Urine Few /hpf (Few)
[2020-11-07 08:45] LABS: Alanine Aminotransferase 29 U/L (14-59); Albumin Level 3.5 g/dL (3.4-5.0); Alkaline Phosphatase 68 U/L (46-116); Anion Gap 8 mmol/L (8-16); Aspartate Amino Transferase 20 U/L (15-37); Bilirubin,Total 0.7 mg/dL (0.00-1.00); Blood Urea Nitrogen 23 mg/dL (7-18); Calcium 8.9 mg/dL (8.5-10.1); Carbon Dioxide 28 mmol/L (21-32); Chloride 106 mmol/L (98-108); Cholesterol 211 mg/dL (0-200); Estimated Glomerular Filt Rate 47; Free T3 2.56 pg/mL (2.18-3.98); Free T4 Free Thyroxine 0.92 ng/dL (0.76-1.46); Glucose 84 mg/dL (70-99); HDL Direct 71 mg/dL (40-60); LDL Cholesterol Calculated 126 mg/dL (<130); Osmolality Calculated 296 mOsm/kg (285-295); Potassium 4.1 mmol/L (3.5-5.1); Sodium 142 mmol/L (136-145); Thyroid Stimulating Hormone 3.65 uIU/mL (0.36-3.74); Total Protein 6.6 g/dL (6.4-8.2); Triglycerides 71 mg/dL (0-150)
[2020-11-10 20:55] LABS: Vitamin D 25 Hydroxy 38 ng/mL (30-100)
== END 2020-11-07 07:25 | disposition home or self-care (01) ==
LOC: CHSLAB 07:25
PROVIDERS: PCP Internal Medicine; Visit Provider Internal Medicine
DX: E78.2 Mixed hyperlipidemia (principal); I10 Essential (primary) hypertension; M81.0 Age-related osteoporosis without current pathological fracture; R94.6 Abnormal results of thyroid function studies; N30.01 Acute cystitis with hematuria
CPT/HCPCS: 36415; 80053; 80061; 81001; 82306; 84439; 84443; 84481; 85025; 87086

== ENCOUNTER 2021-05-20 08:06 | Outpatient (CLI) | payer MEDICARE, SELFPAY ==
[2021-05-20 08:30] LABS: Basophils Absolute Auto 0.06 K/mm3 (0.00-0.10); Basophils Percent Auto 1.3 % (0.0-1.0); Eosinophils Absolute Auto 0.15 K/mm3 (0.02-0.50); Eosinophils Percent Auto 3.2 % (1.0-6.0); Hematocrit 42.1 % (35.0-42.0); Immature Granulocyte Absolute 0.01 K/mm3 (0.00-0.00); Immature Granulocyte Percent A 0.2 % (0.0-0.0); Lymphocytes Absolute Auto 1.54 K/mm3 (1.10-4.50); Lymphocytes Percent Auto 33.2 % (18.0-42.0); Mean Corpuscular HGB Conc 33.3 g/dL (32.0-36.0); Mean Corpuscular Hemoglobin 31.3 pg (27.0-31.0); Mean Corpuscular Volume 94.2 fL (78.0-102.0); Mean Platelet Volume 10.5 fl (9.2-11.8); Monocytes Absolute Auto 0.46 K/mm3 (0.10-0.90); Monocytes Percent Auto 9.9 % (2.0-11.0); Neutrophils Absolute Auto 2.4 K/mm3 (1.7-7.2); Neutrophils Percent Auto 52.2 % (50.0-70.0); Platelet Count Result 194 K/mm3 (150-420); Red Blood Count 4.47 M/mm3 (4.20-5.40); Red Cell Distribution Width 13.9 % (11.6-14.4); White Blood Count 4.6 K/mm3 (4.8-10.8)
[2021-05-20 08:30] LABS: Appearance Urine Clear (Clear); Bilirubin Urine Negative (Negative); Color Urine Light Yellow (Yellow); Glucose Urine UA Negative (Negative); Ketones Urine Negative (Negative); Leukocyte Esterase Ur Negative LEU/UL (Negative); Nitrate Urine Negative (Negative); Protein Urine Negative (Negative); Urobilinogen Urine 0.2 mg/dL (0.2-1.0); pH Urine 6.5 (5.0-8.0)
[2021-05-20 08:39] LABS: Add Urine Microscopic? YES; Blood Urine Trace-Intact (Negative)
[2021-05-20 08:40] LABS: Bacteria Urine Trace /hpf; RBC Urine 0-2 /hpf (0-2); Squamous Epithelial Cell Urine Rare /hpf (Few); WBC Urine None seen /hpf (0-3)
[2021-05-20 10:08] LABS: Alanine Aminotransferase 33 U/L (14-59); Albumin Level 3.6 g/dL (3.4-5.0); Alkaline Phosphatase 69 U/L (46-116); Anion Gap 9 mmol/L (8-16); Aspartate Amino Transferase 23 U/L (15-37); Bilirubin,Total 0.8 mg/dL (0.00-1.00); Blood Urea Nitrogen 20 mg/dL (7-18); Calcium 8.6 mg/dL (8.5-10.1); Carbon Dioxide 28 mmol/L (21-32); Chloride 106 mmol/L (98-108); Cholesterol 210 mg/dL (0-200); Estimated Glomerular Filt Rate 54; Free T4 Free Thyroxine 0.93 ng/dL (0.76-1.46); Glucose 80 mg/dL (70-99); HDL Direct 76 mg/dL (40-60); LDL Cholesterol Calculated 121 mg/dL (<130); Magnesium 2.3 mg/dL (1.8-2.4); Osmolality Calculated 297 mOsm/kg (285-295); Potassium 4.3 mmol/L (3.5-5.1); Sodium 143 mmol/L (136-145); Thyroid Stimulating Hormone 3.13 uIU/mL (0.36-3.74); Total Protein 6.8 g/dL (6.4-8.2); Triglycerides 63 mg/dL (0-150)
[2021-05-20 10:41] LABS: Free T3 2.78 pg/mL (2.18-3.98)
[2021-05-22 13:02] LABS: Vitamin D 25 Hydroxy 39 ng/mL (30-100)
== END 2021-05-20 08:07 | disposition home or self-care (01) ==
LOC: CHSLAB 08:08
PROVIDERS: PCP Internal Medicine; Visit Provider Internal Medicine
DX: M81.0 Age-related osteoporosis without current pathological fracture (principal); I10 Essential (primary) hypertension; R94.6 Abnormal results of thyroid function studies; I49.3 Ventricular premature depolarization
CPT/HCPCS: 36415; 80053; 80061; 81001; 82306; 83735; 84439; 84443; 84481; 85025

== ENCOUNTER 2021-11-12 07:11 | Outpatient (CLI) | payer MEDICARE, SELFPAY ==
[2021-11-12 07:26] LABS: Basophils Absolute Auto 0.07 K/mm3 (0.00-0.10); Basophils Percent Auto 1.2 % (0.0-1.0); Eosinophils Absolute Auto 0.19 K/mm3 (0.02-0.50); Eosinophils Percent Auto 3.3 % (1.0-6.0); Hematocrit 41.8 % (35.0-42.0); Hemoglobin 13.6 g/dL (11.7-13.8); Immature Granulocyte Absolute 0.01 K/mm3 (0.00-0.00); Immature Granulocyte Percent A 0.2 % (0.0-0.0); Lymphocytes Percent Auto 33.5 % (18.0-42.0); Mean Corpuscular HGB Conc 32.5 g/dL (32.0-36.0); Mean Corpuscular Hemoglobin 31.7 pg (27.0-31.0); Mean Corpuscular Volume 97.4 fL (78.0-102.0); Mean Platelet Volume 10.3 fl (9.2-11.8); Monocytes Absolute Auto 0.52 K/mm3 (0.10-0.90); Monocytes Percent Auto 9.2 % (2.0-11.0); Neutrophils Percent Auto 52.6 % (50.0-70.0); Platelet Count Result 198 K/mm3 (150-420); Red Blood Count 4.29 M/mm3 (4.20-5.40); Red Cell Distribution Width 14.3 % (11.6-14.4); White Blood Count 5.7 K/mm3 (4.8-10.8)
[2021-11-12 07:27] LABS: Appearance Urine Clear (Clear); Bilirubin Urine Negative (Negative); Color Urine Light Yellow (Yellow); Glucose Urine UA Negative (Negative); Ketones Urine Negative (Negative); Leukocyte Esterase Ur 1+ (Negative); Nitrate Urine Negative (Negative); Protein Urine Negative (Negative); Urobilinogen Urine 0.2 mg/dL (0.2-1.0)
[2021-11-12 07:32] LABS: Add Urine Microscopic? YES; Bacteria Urine Trace /hpf; Blood Urine Trace-Intact (Negative); RBC Urine 0-2 /hpf (0-2); Squamous Epithelial Cell Urine Few /hpf (Few); WBC Urine 0-3 /hpf (0-3)
[2021-11-12 08:30] LABS: Alanine Aminotransferase 27 U/L (14-59); Albumin Level 3.5 g/dL (3.4-5.0); Alkaline Phosphatase 67 U/L (46-116); Anion Gap 8 mmol/L (8-16); Aspartate Amino Transferase 21 U/L (15-37); Bilirubin,Total 0.7 mg/dL (0.00-1.00); Blood Urea Nitrogen 18 mg/dL (7-18); Calcium 9.1 mg/dL (8.5-10.1); Carbon Dioxide 28 mmol/L (21-32); Chloride 107 mmol/L (98-108); Cholesterol 206 mg/dL (0-200); Estimated Glomerular Filt Rate 52; Free T3 2.67 pg/mL (2.18-3.98); Free T4 Free Thyroxine 0.96 ng/dL (0.76-1.46); Glucose 81 mg/dL (70-99); HDL Direct 77 mg/dL (40-60); LDL Cholesterol Calculated 113 mg/dL (<130); Magnesium 1.9 mg/dL (1.8-2.4); Osmolality Calculated 296 mOsm/kg (285-295); Potassium 4.2 mmol/L (3.5-5.1); Sodium 143 mmol/L (136-145); Thyroid Stimulating Hormone 4.08 uIU/mL (0.36-3.74); Total Protein 6.6 g/dL (6.4-8.2); Triglycerides 82 mg/dL (0-150)
[2021-11-14 15:01] LABS: Vitamin D 25 Hydroxy 39 ng/mL (30-100)
== END 2021-11-12 07:12 | disposition home or self-care (01) ==
LOC: CHSLAB 07:13
PROVIDERS: PCP Internal Medicine; Visit Provider Internal Medicine
DX: R94.6 Abnormal results of thyroid function studies (principal); I10 Essential (primary) hypertension; R30.0 Dysuria; E78.2 Mixed hyperlipidemia; I49.3 Ventricular premature depolarization; M81.0 Age-related osteoporosis without current pathological fracture
CPT/HCPCS: 36415; 80053; 80061; 81001; 82306; 83735; 84439; 84443; 84481; 85025; 87086

== ENCOUNTER 2022-05-26 07:30 | Outpatient (CLI) | payer MEDICARE, SELFPAY ==
[2022-05-26 07:46] LABS: Basophils Absolute Auto 0.06 K/mm3 (0.00-0.10); Basophils Percent Auto 1.1 % (0.0-1.0); Eosinophils Absolute Auto 0.23 K/mm3 (0.02-0.50); Eosinophils Percent Auto 4.2 % (1.0-6.0); Hematocrit 41.1 % (35.0-42.0); Hemoglobin 13.9 g/dL (11.7-13.8); Immature Granulocyte Absolute 0.01 K/mm3 (0.00-0.00); Immature Granulocyte Percent A 0.2 % (0.0-0.0); Lymphocytes Absolute Auto 1.78 K/mm3 (1.10-4.50); Lymphocytes Percent Auto 32.4 % (18.0-42.0); Mean Corpuscular HGB Conc 33.8 g/dL (32.0-36.0); Mean Corpuscular Hemoglobin 31.9 pg (27.0-31.0); Mean Corpuscular Volume 94.3 fL (78.0-102.0); Mean Platelet Volume 10.2 fl (9.2-11.8); Monocytes Absolute Auto 0.61 K/mm3 (0.10-0.90); Monocytes Percent Auto 11.1 % (2.0-11.0); Neutrophils Absolute Auto 2.8 K/mm3 (1.7-7.2); Platelet Count Result 192 K/mm3 (150-420); Red Blood Count 4.36 M/mm3 (4.20-5.40); Red Cell Distribution Width 13.6 % (11.6-14.4); White Blood Count 5.5 K/mm3 (4.8-10.8)
[2022-05-26 07:48] LABS: Appearance Urine Clear (Clear); Bilirubin Urine Negative (Negative); Glucose Urine UA Negative (Negative); Ketones Urine Negative (Negative); Leukocyte Esterase Ur Trace (Negative); Nitrate Urine Negative (Negative); Protein Urine Negative (Negative); Urobilinogen Urine 0.2 mg/dL (0.2-1.0)
[2022-05-26 07:56] LABS: Add Urine Microscopic? YES; Blood Urine Trace-lysed (Negative); Color Urine Light Yellow (Yellow)
[2022-05-26 07:57] LABS: Bacteria Urine Trace /hpf; RBC Urine 0-2 /hpf (0-2); Squamous Epithelial Cell Urine Rare /hpf (Few); WBC Urine 0-3 /hpf (0-3)
[2022-05-26 08:34] LABS: Alanine Aminotransferase 28 U/L (14-59); Albumin Level 3.6 g/dL (3.4-5.0); Alkaline Phosphatase 75 U/L (46-116); Anion Gap 8 mmol/L (8-16); Aspartate Amino Transferase 24 U/L (15-37); Bilirubin,Total 0.7 mg/dL (0.00-1.00); Blood Urea Nitrogen 20 mg/dL (7-18); Calcium 8.8 mg/dL (8.5-10.1); Carbon Dioxide 27 mmol/L (21-32); Chloride 108 mmol/L (98-108); Cholesterol 227 mg/dL (0-200); Estimated Glomerular Filt Rate > 60; Free T3 2.71 pg/mL (2.18-3.98); Free T4 Free Thyroxine 1.07 ng/dL (0.76-1.46); Glucose 84 mg/dL (70-99); HDL Direct 73 mg/dL (40-60); LDL Cholesterol Calculated 138 mg/dL (<130); Osmolality Calculated 297 mOsm/kg (285-295); Potassium 4.3 mmol/L (3.5-5.1); Sodium 143 mmol/L (136-145); Thyroid Stimulating Hormone 3.93 uIU/mL (0.36-3.74); Total Protein 6.8 g/dL (6.4-8.2); Triglycerides 82 mg/dL (0-150)
[2022-05-31 22:25] LABS: Vitamin D 25 Hydroxy 46 ng/mL (30-100)
== END 2022-05-26 07:31 | disposition home or self-care (01) ==
PROVIDERS: PCP Internal Medicine; Visit Provider Internal Medicine
DX: M81.0 Age-related osteoporosis without current pathological fracture (principal); I10 Essential (primary) hypertension; I49.3 Ventricular premature depolarization; E78.2 Mixed hyperlipidemia; R94.6 Abnormal results of thyroid function studies; R30.0 Dysuria
CPT/HCPCS: 36415; 80053; 80061; 81001; 82306; 83735; 84439; 84443; 84481; 85025; 87086; 87088

== ENCOUNTER 2022-11-19 07:47 | Outpatient (CLI) | payer MEDICARE, SELFPAY ==
[2022-11-19 08:04] LABS: Appearance Urine Slightly Cloudy (Clear); Bilirubin Urine Negative (Negative); Blood Urine 1+ (Negative); Glucose Urine UA Negative (Negative); Ketones Urine Negative (Negative); Leukocyte Esterase Ur 3+ LEU/UL (Negative); Nitrate Urine Positive (Negative); Protein Urine Negative (Negative); Urobilinogen Urine 0.2 mg/dL (0.2-1.0)
[2022-11-19 08:13] LABS: Add Urine Microscopic? YES; Color Urine Straw (Yellow)
[2022-11-19 08:14] LABS: Bacteria Urine 2+ /hpf; Squamous Epithelial Cell Urine Occasional /hpf (Few); WBC Urine >75 /hpf (0-3)
[2022-11-19 08:43] LABS: Alanine Aminotransferase 29 U/L (14-59); Albumin Level 3.4 g/dL (3.4-5.0); Alkaline Phosphatase 72 U/L (46-116); Anion Gap 6 mmol/L (8-16); Aspartate Amino Transferase 24 U/L (15-37); Bilirubin,Total 0.7 mg/dL (0.00-1.00); Blood Urea Nitrogen 18 mg/dL (7-18); Calcium 8.9 mg/dL (8.5-10.1); Carbon Dioxide 28 mmol/L (21-32); Chloride 107 mmol/L (98-108); Cholesterol 214 mg/dL (0-200); Estimated Glomerular Filt Rate > 60; Free T3 2.78 pg/mL (2.18-3.98); Free T4 Free Thyroxine 0.94 ng/dL (0.76-1.46); Glucose 85 mg/dL (70-99); HDL Direct 71 mg/dL (40-60); LDL Cholesterol Calculated 125 mg/dL (<130); Osmolality Calculated 292 mOsm/kg (285-295); Potassium 4.1 mmol/L (3.5-5.1); Sodium 141 mmol/L (136-145); Thyroid Stimulating Hormone 4.82 uIU/mL (0.36-3.74); Total Protein 6.7 g/dL (6.4-8.2); Triglycerides 92 mg/dL (0-150)
== END 2022-11-19 07:48 | disposition home or self-care (01) ==
LOC: CHSLAB 07:49
PROVIDERS: PCP Internal Medicine; Visit Provider Internal Medicine
DX: R94.6 Abnormal results of thyroid function studies (principal); I49.3 Ventricular premature depolarization; I10 Essential (primary) hypertension; K21.00 Gastro-esophageal reflux disease with esophagitis, without bleeding; E78.2 Mixed hyperlipidemia; R82.90 Unspecified abnormal findings in urine
CPT/HCPCS: 36415; 80053; 80061; 81001; 84439; 84443; 84481; 87077; 87086; 87088; 87186

== ENCOUNTER 2022-12-20 17:51 | Emergency (ER) | payer MEDICARE, SELFPAY ==
--- NOTE | ~2022-12-20 | CT_ITS ---
EXAMINATION: CT knee RT wo con DATE: 12/20/2022 19:07 INDICATION: Distal right femur fracture TECHNIQUE: High resolution computed tomography (CT) of the right knee was performed without intraveno us contrast. Additional sagittal and coronal reconstructions were performed. Automated exposure contr ol and iterative reconstruction technique were employed. The dose-length product was 542.61 mGy-cm. COMPARISON: Radiographs dated 12/20/2022 FINDINGS: Intra-articular fracture involving the lateral femoral condyle. The minimally displaced fracture frag ment involves the entire weightbearing articular surface of the lateral femoral condyle . The fractur e fragment also includes the majority of the articular surface of the lateral trochlea with portions of the medial and cephalad aspects of the lateral trochlea remaining contiguous the main proximal fem oral fragment. The fracture fragment also includes the majority of the lateral wall of the intercondy lar notch including the footplate of the anterior cruciate ligament. There is minimal likely less yoav n 2 mm incongruity along the articular surface of the lateral trochlea however assessment is limited by the pre-existing subarticular cystic change and cortical irregularity along the lateral trochlea w hich along with similar subarticular cystic change at the patellar apical ridge and lateral facet art icular fracture of overlying high-grade chondromalacia. There is mild comminution with a few small mi ne fragments along the posterior aspect of the main fracture plane. There is up to 8 mm separation of the posterior aspect of the fracture plane with increased coarse along the margins suggesting financial health counselor ior impaction at the time of fracture and subsequent separation. Large layering lipohemarthrosis. IMPRESSION: 1. Minimally displaced intra-articular fracture of the lateral femoral condyle as detailed above. Reviewed, dictated and finalized at location A.
--- NOTE | ~2022-12-20 | XR_ITS ---
EXAMINATION: XR knee RT 3V DATE: 12/20/2022 18:15 INDICATION: Lateral right knee pain post fall TECHNIQUE: Anteroposterior, oblique and crosstable lateral views of the right knee were obtained COMPARISON: None. FINDINGS: Minimally displaced intra-articular fracture involving the lateral femoral condyle with up to [address] ep-off along the cortex at the lateral epicondyle. On the AP projection the fracture appears to exten d medially to the level of the intercondylar eminence. The AP extent of the fracture is uncertain. Pr ominent subarticular cystlike change along the patellar apical ridge suggesting overlying high-grade chondromalacia. Moderate-sized right knee joint effusion. IMPRESSION: 1. Minimally displaced intra-articular fracture involving the lateral femoral condyle. Could consider CT for more definitive assessment of the extent of the fracture and degree of involvement of the art icular surfaces of the trochlea and weightbearing portions of the condyle. Reviewed, dictated and finalized at location A. IMPRESSION: 1. Minimally displaced intra-articular fracture involving the lateral femoral c ondyle. Could consider CT for more definitive assessment of the extent of the f racture and degree of involvement of the articular surfaces of the trochlea and weightbearing portions of the condyle.
[2022-12-20 17:49] VITALS: BP 166/88; PULSE 77; RESP 17; TEMP 36.5; O2SAT 100
--- NOTE | 2022-12-20 18:04 | ED.GENADULT ---
HPI - General Adult General Chief complaint: Extremity Injury, Lower Stated complaint: knee deformity Time Seen by Provider: 12/20/22 18:02 Related Data Home Medications Medication Instructions Recorded Confirmed aspirin 81 mg tablet,delayed 81 mg PO DAILY 09/21/19 09/22/19 release (Kervin Low Dose Aspirin) cranberry 500 mg capsule 500 mg PO DAILY 09/21/19 09/22/19 lisinopril 10 mg tablet 10 mg PO DAILY 09/21/19 09/22/19 metoprolol succinate 25 mg 12.5 mg PO DAILY 09/21/19 09/22/19 tablet,extended release 24 hr azmujjjexwqg-Jm-qpmb-minerals 1 tablet PO DAILY 09/21/19 09/22/19 (Multiple Vitamin, Womens tablet) Allergies Allergy/AdvReac Type Severity Reaction Status Date / Time No Known Allergies Allergy Verified 09/26/19 09:06 [facility] Past Medical History Medical History Atrial fibrillation She is unsure whether she was told she had atrial fibrillation in the past. Hypertension Migraine Synovitis of shoulder Transient global amnesia Had an episode 10/2018 of transient aphasia that resolved spontaneously and was felt may have been related to her complex migraines. Surgical History Surgical History H/O breast biopsy Benign H/O cataract removal with insertion of prosthetic lens Around 2008, Bilateral History of mandibular surgery TMJ repair Previous back surgery Around 2016 Family History Family History Mother Heart failure Social History Social History Social History: Ms. Salas lives at home with her in [place]. 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 She reports around 2 drinks of wine per week; never smoker; no other substance use. Her PCP is Dr Eduardo Cheney and her Egg Breaker is Dr Lane with [facility] in [place]. She designates her daughter, Aminta Castellanos, as her surrogate decision maker and wishes to be full code status. Smoking status: Never smoker Alcohol intake: current Drinks per week: 1 Substance use: never Living arrangements: with family Additional living arrangements comments: Lives with Gender identity (if verbalized by the patient): Female Spiritual care concerns: No Agree to blood products: Yes Course Vital Signs Vital signs: Vital Signs Temperature 97.7 F 12/20/22 17:49 Pulse Rate 77 12/20/22 17:49 Respiratory Rate 17 12/20/22 17:49 Blood Pressure 166/88 H 12/20/22 17:49 Pulse Oximetry 100 12/20/22 17:49 Oxygen Delivery Room Air 12/20/22 17:49 Temperature 97.7 F 12/20/22 17:49 Pulse Rate 77 12/20/22 17:49 Respiratory Rate 17 12/20/22 17:49 Blood Pressure 166/88 H 12/20/22 17:49 Pulse Oximetry 100 12/20/22 17:49 Oxygen Delivery Room Air 12/20/22 17:49 Medical Decision Making Vital Signs Vital Signs: Vital Signs Temperature 97.7 F 12/20/22 17:49 Pulse Rate 77 12/20/22 17:49 Respiratory Rate 17 12/20/22 17:49 Blood Pressure 166/88 H 12/20/22 17:49 Pulse Oximetry 100 12/20/22 17:49 Oxygen Delivery Room Air 12/20/22 17:49 Temperature 97.7 F 12/20/22 17:49 Pulse Rate 77 12/20/22 17:49 Respiratory Rate 17 12/20/22 17:49 Blood Pressure 166/88 H 12/20/22 17:49 Pulse Oximetry 100 12/20/22 17:49 Oxygen Delivery Room Air 12/20/22 17:49 Discharge Plan Discharge Prescriptions: No Action aspirin [Kervin Low Dose Aspirin] 81 mg Tablet,Delayed Release (Dr/Ec) 81 mg PO DAILY lisinopril 10 mg tablet 10 mg PO DAILY metoprolol succinate 25 mg tablet extended release 24 hr 12.5 mg PO DAILY cranberry 500 mg Capsule 500 mg PO DAILY Multiple Vitamin, Womens Tablet 1 tablet PO DAILY ibuprofen 400 mg tablet 400 mg
--- NOTE | 2022-12-20 18:35 | ED.GENADULT ---
HPI - General Adult General Chief complaint: Extremity Injury, Lower Stated complaint: knee deformity Time Seen by Provider: 12/20/22 18:02 History of Present Illness HPI narrative: 82-year-old female presents for evaluation of right knee pain after she slipped off a step and twisted the knee earlier this evening.? There was no fall or head or neck trauma.? She is in overall good health and past medical history only includes hypertension. Related Data Home Medications Medication Instructions Recorded Confirmed aspirin 81 mg tablet,delayed 81 mg PO DAILY 09/21/19 09/22/19 release (Kervin Low Dose Aspirin) cranberry 500 mg capsule 500 mg PO DAILY 09/21/19 09/22/19 lisinopril 10 mg tablet 10 mg PO DAILY 09/21/19 09/22/19 metoprolol succinate 25 mg 12.5 mg PO DAILY 09/21/19 09/22/19 tablet,extended release 24 hr lahbskulyuqi-Gl-nhkm-minerals 1 tablet PO DAILY 09/21/19 09/22/19 (Multiple Vitamin, Womens tablet) Allergies Allergy/AdvReac Type Severity Reaction Status Date / Time No Known Allergies Allergy Verified 12/20/22 18:44 Review of Systems Review of Systems: CONSTITUTIONAL: Denies fever, chills, or sweats. EYES: Denies visual changes, redness, or discharge. ENT: Denies rhinorrhea, congestion, sore throat, or otalgia. CARDIOVASCULAR: Denies chest pain, palpitations, or edema. RESPIRATORY: Denies cough or dyspnea. GASTROINTESTINAL: Denies abdominal pain, nausea, vomiting, or diarrhea. GENITOURINARY: Denies dysuria or hematuria. SKIN: Denies rash or itching. MUSCULOSKELETAL: Denies back pain, joint pain, or myalgia. NEUROLOGIC: Denies headache, numbness, or weakness. PSYCHIATRIC: Denies anxiety or depression. [facility] Past Medical History Medical History (Updated 12/20/22 @ 21:14 by Dhaval Arreola DO) Atrial fibrillation She is unsure whether she was told she had atrial fibrillation in the past. Hypertension Migraine Synovitis of shoulder Transient global amnesia Had an episode 10/2018 of transient aphasia that resolved spontaneously and was felt may have been related to her complex migraines. Surgical History Surgical History H/O breast biopsy Benign H/O cataract removal with insertion of prosthetic lens Around 2008, Bilateral History of mandibular surgery TMJ repair Previous back surgery Around 2017 Family History Family History Mother Heart failure Social History Social History Social History: Ms. Salas lives at home with her in [place]. 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 She reports around 2 drinks of wine per week; never smoker; no other substance use. Her PCP is Dr Eduardo Cheney and her Piece Meat Trimmer is Dr Lane with [facility] in [place]. She designates her daughter, Aminta Castellanos, as her surrogate decision maker and wishes to be full code status. Smoking status: Never smoker Alcohol intake: current Drinks per week: 1 Substance use: never Living arrangements: with family Additional living arrangements comments: Lives with Gender identity (if verbalized by the patient): Female Spiritual care concerns: No Agree to blood products: Yes Exam Narrative: GENERAL: Well-appearing, well-nourished, and in no acute distress. HEAD: Normocephalic, atraumatic. EYES: PERRLA and EOMI. ENT: Nares clear, no rhinorrhea or epistaxis.? Mucous membranes moist. NECK: Supple. CHEST: Clear to auscultation.? No respiratory distress. HEART: Regular rate and rhythm.? No murmur heard.? Normal peripheral pulses. ABDOMEN: Soft, nontender, nondistended, normal active bowel sounds. EXTREMITIES: Normal range of motion.? No edema.? Moderate to severe joint effusion which is worse in the suprapatellar reg
[2022-12-20] MEDS: MORPHINE SULFATE (*CRX) 2 MG/ML INJ IV PUSH ×2 (18:52→22:54)
[2022-12-20 19:33] VITALS: BP 162/91; PULSE 79; RESP 18; O2SAT 100
--- NOTE | 2022-12-20 20:05 | ECG_ITS ---
Measurements Intervals Huger Rate: 78 P: 39 NM: 150 QRS: -37 QRSD: 88 T: 17 QT: 391 QTc: 448 Interpretive Statements SINUS RHYTHM ATRIAL PREMATURE COMPLEXES LEFT AXIS DEVIATION LOW QRS VOLTAGE IN PRECORDIAL LEADS BASELINE ARTIFACT- II, III, V3-V6 BORDERLINE ECG COMPARED TO ECG 09/21/2019 22:05:55 NO SIGNIFICANT CHANGES Electronically Signed On 12-21-2022 7:02:17 CDT by Carson Ochoa D.O.
--- NOTE | 2022-12-20 20:18 | PC.NURSE ---
attempted to call [facility] to give report with no answer
[2022-12-20 20:28] LABS: Basophils Absolute Auto 0.1 K/mm3 (0.0-0.1); Basophils Percent Auto 0.6 % (0.2-1.2); Eosinophils Absolute Auto 0.1 K/mm3 (0-0.3); Eosinophils Percent Auto 0.8 % (0-4.4); Hematocrit 41.2 % (37.0-47.0); Immature Granulocyte Absolute 0.02 K/mm3 (0.00-0.031); Immature Granulocyte Percent A 0.2 % (0-0.5); Lymphocytes Percent Auto 17.5 % (18.3-44.2); Mean Corpuscular Hemoglobin 31.4 pg (26-34); Mean Corpuscular Volume 92.4 fl (80-100); Mean Platelet Volume 10.6 fl (7.4-10.4); Monocytes Absolute Auto 0.5 K/mm3 (0.1-0.6); Monocytes Percent Auto 6.3 % (2.6-8.5); Neutrophils Absolute Auto 6.4 K/mm3 (1.3-6.7); Neutrophils Percent Auto 74.6 % (45.5-73.1); Platelet Count Result 204 k/mm3 (150-375); Red Blood Count 4.46 M/mm3 (4.2-5.4); Red Cell Distribution Width 13.2 % (11.5-14.5); White Blood Count 8.6 K/mm3 (4.5-10.0)
[2022-12-20 20:38] LABS: Anion Gap 5 mmol/L (8-16); Blood Urea Nitrogen 18 mg/dL (7-17); Calcium 9.2 mg/dL (8.4-10.2); Carbon Dioxide 25 mmol/L (22-30); Chloride 107 mmol/L (98-107); Estimated CRCL calculation 38 ml/min; Estimated Glomerular Filt Rate > 60; Glucose 89 mg/dL (65-110); Potassium 3.9 mmol/L (3.4-5.0); Prothrombin Time 13.6 Seconds (11.1-14.7); Sodium 137 mmol/L (137-145)
[2022-12-20 20:39] LABS: Partial Thromboplastin Time 23.5 SECONDS (22.3-36.8)
[2022-12-20 21:31] VITALS: BP 136/81; PULSE 79; RESP 17; O2SAT 98
--- NOTE | 2022-12-20 22:58 | PC.NURSE ---
patient began having increasing pain. spoke with Dr Mccallum and got verbal order for morphine
[2022-12-21 00:35] VITALS: BP 140/67; PULSE 70; RESP 16; O2SAT 100
== END 2022-12-21 00:38 | disposition short-term general hospital (02) ==
PROVIDERS: Emergency Provider Emergency Medicine; PCP Internal Medicine
DX: S72.421A Displaced fracture of lateral condyle of right femur, initial encounter for closed fracture (principal); I48.91 Unspecified atrial fibrillation; I10 Essential (primary) hypertension; W18.40XA Slipping, tripping and stumbling without falling, unspecified, initial encounter
CPT/HCPCS: 36415; 51702; 73562; 73700; 80048; 85025; 85610; 85730; 93005; 96374; 96376; 99285; J2270

== ENCOUNTER 2022-12-24 15:57 | Emergency (ER) | payer MEDICARE, SELFPAY ==
--- NOTE | ~2022-12-24 | XR_ITS ---
EXAM: XR pelvis 1-2V DATE: 12/24/2022 17:06 HISTORY: RIGHT HIP PAIN AFTER FALL . COMPARISON: X-ray right hip 03/04/2016. FINDINGS: Decreased mineralization. Right intertrochanteric fracture with mild medial angulation. No lytic or blastic lesion. Joint spaces are severe lumbar degenerative disc disease. Mild bilateral hi p osteoarthritis. Mild osteitis pubis. No erosion or periosteal change. Soft tissues within normal li mits. IMPRESSION: Intertrochanteric fracture of the right hip. Reviewed, dictated and finalized at location K.
--- NOTE | ~2022-12-24 | CT_ITS ---
EXAMINATION: CT pelvis wo con DATE: 12/24/2022 17:22 INDICATION: Trauma, right hip pain TECHNIQUE: Computed tomography (CT) of the pelvis was performed without intravenous contrast. Automat ed exposure control and iterative reconstruction technique were employed. The dose-length product was x-rayed pelvis, same date mGy-cm. COMPARISON: None FINDINGS: Minimally displaced and mildly comminuted fracture of the intertrochanteric region of the r ight proximal femur. No other fracture detected. Severe multilevel lumbar degenerative disc disease. Mild bilateral hip osteoarthritis. Mild osteitis pubis. Simple right lower pole renal cyst. Atheroscl erotic calcifications. Scattered diverticuli. Normal appendix. IMPRESSION: Intertrochanteric fracture of the right hip. Reviewed, dictated and finalized at location K.
[2022-12-24 15:57] VITALS: BP 143/70; PULSE 83; RESP 18; TEMP 36.6; O2SAT 96
--- NOTE | 2022-12-24 16:41 | ED.GENADULT ---
HPI - General Adult General Chief complaint: Fall Stated complaint: FallUpper leg pain Time Seen by Provider: 12/24/22 16:30 History of Present Illness HPI narrative: 82yo woman is post-trauma day #4 for a distal femur fracture s/p internal fixation, presents with severe pain to the right hip joint and groin crease, sudden onset with a fall that occurred today at 10am. Tried oxycodone at 1pm without any relief. No numbness, weakness, fever, chills, rash, swelling, or dysuria. Related Data Home Medications Medication Instructions Recorded Confirmed aspirin 81 mg tablet,delayed 81 mg PO DAILY 09/21/19 09/22/19 release (Kervin Low Dose Aspirin) cranberry 500 mg capsule 500 mg PO DAILY 09/21/19 09/22/19 lisinopril 10 mg tablet 10 mg PO DAILY 09/21/19 09/22/19 metoprolol succinate 25 mg 12.5 mg PO DAILY 09/21/19 09/22/19 tablet,extended release 24 hr qiorkrnapbbp-Bt-oife-minerals 1 tablet PO DAILY 09/21/19 09/22/19 (Multiple Vitamin, Womens tablet) Allergies Allergy/AdvReac Type Severity Reaction Status Date / Time No Known Allergies Allergy Verified 12/20/22 18:44 Review of Systems Review of Systems: All systems reviewed & are unremarkable except as noted in HPI and below Constitutional: Constitutional: Denies fever(s) ENT: Denies dizziness Cardiovascular: Cardiovascular: Denies chest pain Respiratory: Respiratory: Denies cough and Denies dyspnea Gastrointestinal: Gastrointestinal: Denies abdominal pain Musculoskeletal: Musculoskeletal: Denies back pain [facility] Past Medical History Medical History (Updated 12/24/22 @ 18:35 by Antonio Alfred MD) Atrial fibrillation She is unsure whether she was told she had atrial fibrillation in the past. Hypertension Migraine Synovitis of shoulder Transient global amnesia Had an episode 10/2018 of transient aphasia that resolved spontaneously and was felt may have been related to her complex migraines. Surgical History Surgical History H/O breast biopsy Benign H/O cataract removal with insertion of prosthetic lens Around 2008, Bilateral History of mandibular surgery TMJ repair Previous back surgery Around 2016 Family History Family History Mother Heart failure Social History Social History Social History: Ms. Salas lives at home with her in [place]. 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 She reports around 2 drinks of wine per week; never smoker; no other substance use. Her PCP is Dr Eduardo Cheney and her Welding Machine Assembler is Dr Lane with [facility] in [place]. She designates her daughter, Aminta Castellanos, as her surrogate decision maker and wishes to be full code status. Smoking status: Never smoker Alcohol intake: current Drinks per week: 1 Substance use: never Living arrangements: with family Additional living arrangements comments: Lives with Gender identity (if verbalized by the patient): Female Spiritual care concerns: No Agree to blood products: Yes Exam Const: General: healthy appearing, no acute distress and alert Nutritional Appearance: well nourished HENMT: Head: normal to inspection and no contusions Eyes: Conjunctivae: conjunctivae normal EOM: EOMs intact bilaterally Resp: Effort & Inspection: normal respiratory effort and not labored Cardio: Rate: regular rate GI: Inspection: non-distended GI Palp: Yes Soft to palpation and No Tenderness to palpation present (GI) Skin: General skin exam: normal color, no jaundice and no pallor Neuro: General: patient oriented x3 Extrem: Other: tenderness to right groin crease Course Course Emergency Course: 18:32 pt with fracture on x-ray unclear morphology, maybe intertrochanteric. CT
[2022-12-24] MEDS: methocarbamoL 500 MG TABLET 1000 MG PO (16:42)
[2022-12-24] MEDS: diazePAM (*CRX) 5 MG TABLET PO (16:42)
[2022-12-24] MEDS: HYDROcodone/acetaminophen (*CRX) 5-325 MG TABLET 1 TAB PO (16:42)
[2022-12-24 18:05] LABS: Basophils Absolute Auto 0.02 K/mm3 (0.00-0.10); Basophils Percent Auto 0.2 % (0.0-1.0); Eosinophils Absolute Auto 0.05 K/mm3 (0.02-0.50); Eosinophils Percent Auto 0.5 % (1.0-6.0); Hematocrit 33.1 % (35.0-42.0); Immature Granulocyte Absolute 0.07 K/mm3 (0.00-0.00); Immature Granulocyte Percent A 0.7 % (0.0-0.0); Lymphocytes Absolute Auto 0.72 K/mm3 (1.10-4.50); Lymphocytes Percent Auto 6.9 % (18.0-42.0); Mean Corpuscular HGB Conc 33.2 g/dL (32.0-36.0); Mean Corpuscular Hemoglobin 31.5 pg (27.0-31.0); Mean Corpuscular Volume 94.8 fL (78.0-102.0); Mean Platelet Volume 10.5 fl (9.2-11.8); Monocytes Absolute Auto 0.72 K/mm3 (0.10-0.90); Monocytes Percent Auto 6.9 % (2.0-11.0); Neutrophils Absolute Auto 8.9 K/mm3 (1.7-7.2); Neutrophils Percent Auto 84.8 % (50.0-70.0); Platelet Count Result 151 K/mm3 (150-420); Red Blood Count 3.49 M/mm3 (4.20-5.40); Red Cell Distribution Width 13.2 % (11.6-14.4); White Blood Count 10.4 K/mm3 (4.8-10.8)
[2022-12-24] MEDS: SODIUM CHLORIDE 0.9% IV 1,000 ML 250 ML IV CONT (18:05)
[2022-12-24 18:17] LABS: Prothrombin Time 10.8 Seconds (9.50-12.10)
[2022-12-24 18:22] LABS: Alanine Aminotransferase 61 U/L (14-59); Albumin Level 2.8 g/dL (3.4-5.0); Alkaline Phosphatase 77 U/L (46-116); Anion Gap 9 mmol/L (8-16); Aspartate Amino Transferase 59 U/L (15-37); Bilirubin,Total 0.8 mg/dL (0.00-1.00); Blood Urea Nitrogen 9 mg/dL (7-18); Calcium 8.5 mg/dL (8.5-10.1); Carbon Dioxide 26 mmol/L (21-32); Chloride 105 mmol/L (98-108); Estimated CRCL calculation 38 ml/min; Estimated Glomerular Filt Rate > 60; Glucose 112 mg/dL (70-99); Osmolality Calculated 289 mOsm/kg (285-295); Potassium 3.8 mmol/L (3.5-5.1); Sodium 140 mmol/L (136-145); Total Protein 6.3 g/dL (6.4-8.2)
[2022-12-24 18:33] VITALS: BP 155/94; PULSE 81; RESP 20; TEMP 36.9; O2SAT 94
[2022-12-24 19:27] LABS: Appearance Urine Clear (Clear); Bilirubin Urine Negative (Negative); Blood Urine Negative (Negative); Color Urine Light Yellow (Yellow); Glucose Urine UA Negative (Negative); Ketones Urine 1+ (Negative); Leukocyte Esterase Ur Negative LEU/UL (Negative); Nitrate Urine Negative (Negative); Protein Urine Negative (Negative); Specific Grav Ur <= 1.005 (1.010-1.020); Urobilinogen Urine 0.2 mg/dL (0.2-1.0)
[2022-12-24 19:32] LABS: Add Urine Microscopic? YES; Bacteria Urine Trace /hpf; RBC Urine 0-2 /hpf (0-2); Squamous Epithelial Cell Urine Rare /hpf (Few); WBC Urine 0-3 /hpf (0-3)
== END 2022-12-24 19:10 | disposition short-term general hospital (02) ==
PROVIDERS: Emergency Provider Emergency Medicine; PCP Internal Medicine
DX: S72.144A Nondisplaced intertrochanteric fracture of right femur, initial encounter for closed fracture (principal); W19.XXXA Unspecified fall, initial encounter; I48.91 Unspecified atrial fibrillation; I10 Essential (primary) hypertension; Z79.82 Long term (current) use of aspirin
CPT/HCPCS: 36415; 72170; 72192; 80053; 81001; 85025; 85610; 96360; 99285; A9270; J7030

== ENCOUNTER 2023-01-16 13:30 | Outpatient (NON) | payer MEDICARE, SELFPAY ==
[2023-01-16 13:52] LABS: Appearance Urine Clear (Clear); Bilirubin Urine Negative (Negative); Blood Urine 3+ (Negative); Color Urine Light Yellow (Yellow); Glucose Urine UA Negative (Negative); Ketones Urine Negative (Negative); Leukocyte Esterase Ur 2+ LEU/UL (Negative); Nitrate Urine Negative (Negative); Protein Urine Negative (Negative); Specific Grav Ur 1.025 (1.010-1.020); Urobilinogen Urine 0.2 mg/dL (0.2-1.0)
[2023-01-16 14:06] LABS: Add Urine Microscopic? YES; Alanine Aminotransferase 17 U/L (14-59); Albumin Level 3.1 g/dL (3.4-5.0); Alkaline Phosphatase 172 U/L (46-116); Anion Gap 9 mmol/L (8-16); Aspartate Amino Transferase 17 U/L (15-37); Bilirubin,Total 0.5 mg/dL (0.00-1.00); Blood Urea Nitrogen 14 mg/dL (7-18); Calcium 9.2 mg/dL (8.5-10.1); Carbon Dioxide 26 mmol/L (21-32); Chloride 103 mmol/L (98-108); Estimated Glomerular Filt Rate > 60; Glucose 81 mg/dL (70-99); Osmolality Calculated 285 mOsm/kg (285-295); Potassium 3.8 mmol/L (3.5-5.1); Sodium 138 mmol/L (136-145); Squamous Epithelial Cell Urine Few /hpf (Few); Total Protein 7.1 g/dL (6.4-8.2)
[2023-01-16 14:07] LABS: Bacteria Urine Trace /hpf
[2023-01-16 14:42] LABS: Basophils Absolute Auto 0.05 K/mm3 (0.00-0.10); Basophils Percent Auto 0.8 % (0.0-1.0); Eosinophils Absolute Auto 0.13 K/mm3 (0.02-0.50); Eosinophils Percent Auto 2.2 % (1.0-6.0); Hematocrit 32.2 % (35.0-42.0); Hemoglobin 10.2 g/dL (11.7-13.8); Immature Granulocyte Absolute 0.03 K/mm3 (0.00-0.00); Immature Granulocyte Percent A 0.5 % (0.0-0.0); Lymphocytes Percent Auto 20.3 % (18.0-42.0); Mean Corpuscular HGB Conc 31.7 g/dL (32.0-36.0); Mean Corpuscular Hemoglobin 31.3 pg (27.0-31.0); Mean Corpuscular Volume 98.8 fL (78.0-102.0); Mean Platelet Volume 9.9 fl (9.2-11.8); Monocytes Absolute Auto 0.51 K/mm3 (0.10-0.90); Monocytes Percent Auto 8.6 % (2.0-11.0); Neutrophils Percent Auto 67.6 % (50.0-70.0); Platelet Count Result 339 K/mm3 (150-420); Red Blood Count 3.26 M/mm3 (4.20-5.40); Red Cell Distribution Width 15.4 % (11.6-14.4); White Blood Count 5.9 K/mm3 (4.8-10.8)
[2023-01-19 09:22] LABS: Ferritin 513 ng/mL (8-252); Iron 30 ug/dL (50-170)
== END 2023-01-16 13:31 | disposition home or self-care (01) ==
LOC: CHSLAB 13:32
PROVIDERS: Visit Provider Internal Medicine
DX: N39.0 Urinary tract infection, site not specified (principal); D64.9 Anemia, unspecified; I10 Essential (primary) hypertension; R82.90 Unspecified abnormal findings in urine
CPT/HCPCS: 36415; 80053; 81001; 82728; 83540; 85025; 87077; 87086; 87088; 87186

== ENCOUNTER 2023-01-26 10:55 | Outpatient (NON) | payer MEDICARE, SELFPAY ==
[2023-01-26 11:10] LABS: Appearance Urine Clear (Clear); Bilirubin Urine Negative (Negative); Blood Urine Trace-Intact (Negative); Color Urine Yellow (Yellow); Glucose Urine UA Negative (Negative); Ketones Urine Negative (Negative); Leukocyte Esterase Ur Negative (Negative); Nitrate Urine Negative (Negative); Protein Urine Negative (Negative); Specific Grav Ur >= 1.030 (1.010-1.020); Urobilinogen Urine 0.2 mg/dL (0.2-1.0); pH Urine 5.5 (5.0-8.0)
[2023-01-26 11:26] LABS: Add Urine Microscopic? YES; Bacteria Urine Trace /hpf; RBC Urine 0-2 /hpf (0-2); Squamous Epithelial Cell Urine Few /hpf (Few); WBC Urine 0-3 /hpf (0-3)
== END 2023-01-26 10:56 | disposition home or self-care (01) ==
LOC: CHSLAB 10:56
PROVIDERS: PCP Internal Medicine; Visit Provider Internal Medicine
DX: N39.0 Urinary tract infection, site not specified (principal); R82.90 Unspecified abnormal findings in urine
CPT/HCPCS: 81001; 87086; 87088

== ENCOUNTER 2023-02-06 13:09 | Outpatient (NON) | payer MEDICARE, SELFPAY ==
[2023-02-06 13:19] LABS: Appearance Urine Clear (Clear); Bilirubin Urine Negative (Negative); Blood Urine 1+ (Negative); Color Urine Light Yellow (Yellow); Glucose Urine UA Negative (Negative); Ketones Urine Trace (Negative); Leukocyte Esterase Ur 2+ (Negative); Nitrate Urine Negative (Negative); Protein Urine Negative (Negative); Urobilinogen Urine 0.2 mg/dL (0.2-1.0); pH Urine 6.5 (5.0-8.0)
[2023-02-06 13:20] LABS: Add Urine Microscopic? YES; Squamous Epithelial Cell Urine Few /hpf (Few)
[2023-02-06 13:26] LABS: Bacteria Urine 1+ /hpf
== END 2023-02-06 13:10 | disposition home or self-care (01) ==
LOC: CHSHH 13:11
PROVIDERS: Visit Provider Internal Medicine
DX: S72.141D Displaced intertrochanteric fracture of right femur, subsequent encounter for closed fracture with routine healing (principal); I48.91 Unspecified atrial fibrillation; I10 Essential (primary) hypertension; D64.9 Anemia, unspecified; N39.0 Urinary tract infection, site not specified; R82.90 Unspecified abnormal findings in urine
CPT/HCPCS: 81001; 87086

== ENCOUNTER 2023-02-16 15:49 | Outpatient (CLI) | payer MEDICARE, SELFPAY ==
--- NOTE | ~2023-02-16 | XR_ITS ---
AP and oblique views of the left ribs, and PA and lateral chest radiographs Clinical History: Pain Findings: No rib fracture is seen. Osseous alignment is anatomic. Lungs are clear, without focal cons olidation or pleural effusion. Cardiomediastinal contour is within normal limits. Soft tissues are un remarkable. Compression fractures of what are probably T11 and T12 are noted. Impression: No rib fracture is seen. Compression fractures of probably T11 and T12. Probable mild progressive loss of height of T12 since 10/08/2016. T11 fracture is more age indeterminate. Clear lungs. Reviewed, dictated and finalized at location . Impression: No rib fracture is seen. Compression fractures of probably T11 and T12. Probable mild progressive loss o f height of T12 since 10/08/2016. T11 fracture is more age indeterminate. Clear lungs.
--- NOTE | ~2023-02-16 | XR_ITS ---
XR thoracic spine 3V DATE: 02/16/2023 16:21 INDICATION: Mid back and chest wall pleuritic pain TECHNIQUE: AP, lateral, swimmer views COMPARISON: 02/19/2016 CT thorax FINDINGS: Diffuse osteopenia. Chronic mild anterior wedging of T12, stable since 02/19/2016. No recent fracture or dislocation of th e thoracic spine. There is degenerative spurring of the thoracic spine. The thoracic pedicles appear intact. No paraspinal soft tissue thickening is noted. Chronic moderate anterior wedge compression fracture deformity of T12, present on 02/19/2016. Severe degenerative disc disease at included L2-3, L3-4, L4-5 levels. IMPRESSION: Osteopenia Degenerative spurring of the thoracic spine Chronic mild anterior wedging at T12 and chronic anterior wedge compression fracture of L1, stable si nce 02/19/2016 Severe lumbar degenerative disc disease at the included L2-3, L3-4 and L4-5 levels Reviewed, dictated and finalized at location B. IMPRESSION: Osteopenia Degenerative spurring of the thoracic spine Chronic mild anterior wedging at T12 and chronic anterior wedge compression fra cture of L1, stable since 02/19/2016 Severe lumbar degenerative disc disease at the included L2-3, L3-4 and L4-5 lev els
== END 2023-02-16 15:50 | disposition home or self-care (01) ==
LOC: CHSIMG 15:51
PROVIDERS: PCP Internal Medicine; Visit Provider Internal Medicine
DX: M77.8 Other enthesopathies, not elsewhere classified (principal); M48.54XA Collapsed vertebra, not elsewhere classified, thoracic region, initial encounter for fracture; M48.56XA Collapsed vertebra, not elsewhere classified, lumbar region, initial encounter for fracture; M51.36 Other intervertebral disc degeneration, lumbar region
CPT/HCPCS: 71046; 71100; 72072

== ENCOUNTER 2023-02-18 11:50 | Outpatient (NON) | payer MEDICARE, SELFPAY ==
[2023-02-18 12:21] LABS: Basophils Absolute Auto 0.06 K/mm3 (0.00-0.10); Eosinophils Absolute Auto 0.09 K/mm3 (0.02-0.50); Eosinophils Percent Auto 1.4 % (1.0-6.0); Hematocrit 38.9 % (35.0-42.0); Hemoglobin 12.5 g/dL (11.7-13.8); Immature Granulocyte Absolute 0.02 K/mm3 (0.00-0.00); Immature Granulocyte Percent A 0.3 % (0.0-0.0); Lymphocytes Percent Auto 20.8 % (18.0-42.0); Mean Corpuscular HGB Conc 32.1 g/dL (32.0-36.0); Mean Corpuscular Hemoglobin 29.6 pg (27.0-31.0); Mean Corpuscular Volume 92.2 fL (78.0-102.0); Mean Platelet Volume 10.9 fl (9.2-11.8); Monocytes Absolute Auto 0.52 K/mm3 (0.10-0.90); Monocytes Percent Auto 8.3 % (2.0-11.0); Neutrophils Absolute Auto 4.3 K/mm3 (1.7-7.2); Neutrophils Percent Auto 68.2 % (50.0-70.0); Platelet Count Result 251 K/mm3 (150-420); Red Blood Count 4.22 M/mm3 (4.20-5.40); Red Cell Distribution Width 14.4 % (11.6-14.4); White Blood Count 6.3 K/mm3 (4.8-10.8)
[2023-02-18 12:48] LABS: Ferritin 411 ng/mL (8-252); Iron 36 ug/dL (50-170)
== END 2023-02-18 11:51 | disposition home or self-care (01) ==
LOC: CHSLAB 11:52 → CHSHH 11:53
PROVIDERS: Visit Provider Internal Medicine
DX: D50.9 Iron deficiency anemia, unspecified (principal)
CPT/HCPCS: 82728; 83540; 85025

== ENCOUNTER 2023-02-18 13:29 | Outpatient (CLI) | payer MEDICARE, SELFPAY ==
--- NOTE | ~2023-02-18 | CT_ITS ---
EXAMINATION: CT thoracic lumbar wo con DATE: 02/18/2023 13:58 INDICATION: Suspected compression fractures. TECHNIQUE: Computed tomography (CT) of the thoracic and lumbar spine was performed without intravenou s contrast. The dose-length product was 780.41 mGy-cm. COMPARISON: CT chest dated 02/19/2016 FINDINGS: There is mild loss of vertebral body height at T6 which appears chronic. There is severe mu ltilevel spondylosis involving the lower cervical and thoracic spine. There is mild scoliosis. There is dependent atelectasis. There is atherosclerosis of the aorta and coronary arteries. Cardiomegaly. There are wedge compression fractures of T12 and L1 which appear chronic and unchanged. There is brandi re lumbar spondylosis characterized by disc narrowing, vacuum phenomena, endplate sclerosis and tessa nal osteophytes. There is multilevel facet hypertrophy most severe at L4-5 and L5-S1. Small hiatal he rnia. IMPRESSION: 1. No acute abnormality of the thoracic or lumbar spine. 2: Mild chronic vertebral fractures of T6, T12 and L1. 3: Severe spondylosis of the lower cervical, thoracic and lumbar spine. Reviewed, dictated and finalized at location A.
== END 2023-02-18 13:30 | disposition home or self-care (01) ==
PROVIDERS: PCP Internal Medicine; Visit Provider Internal Medicine
DX: S29.9XXA Unspecified injury of thorax, initial encounter (principal); M84.48XA Pathological fracture, other site, initial encounter for fracture; M43.02 Spondylolysis, cervical region; M43.06 Spondylolysis, lumbar region; M43.04 Spondylolysis, thoracic region
CPT/HCPCS: 72128; 72131; 82728; 83540; 85025

== ENCOUNTER 2023-03-13 11:44 | Emergency (ER) | payer MEDICARE, SELFPAY ==
--- NOTE | 2023-03-13 11:58 | ED.DIZZY ---
HPI - Dizziness General Chief Complaint: Unspecified Stated Complaint: light headed Time Seen by Provider: 03/13/23 11:58 Source: patient and RN notes reviewed Mode of arrival: ambulatory Limitations: no limitations History of Present Illness HPI Narrative: Patient sent over from doctor's office when it was noted on EKG she had a lot of irregularities with arrhythmia. She has a history of paroxysmal atrial fibrillation but apparently has not been caught on a monitor or EKG. She said she had an episode this morning where she felt lightheaded and felt like she could see a aura with a central scotoma in her left eye. This is since resolved and her lightheadedness has resolved. Because of the EKG findings at the doctor's office he sent her over for further evaluation lab work. 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) Related Data Home Medications Medication Instructions Recorded Confirmed aspirin 81 mg tablet,delayed 81 mg PO DAILY 09/21/19 01/02/23 release (Kervin Low Dose Aspirin) cranberry 500 mg capsule 500 mg PO DAILY 09/21/19 01/02/23 lisinopril 10 mg tablet 10 mg PO DAILY 09/21/19 01/02/23 metoprolol succinate 25 mg 12.5 mg PO DAILY 09/21/19 01/02/23 tablet,extended release 24 hr sookfpclqyhx-Js-fwrp-minerals 1 tablet PO DAILY 09/21/19 01/02/23 (Multiple Vitamin, Womens tablet) acetaminophen 325 mg tablet 650 mg PO Q4H PRN Pain (Scale 12/29/22 01/02/23 Score 1-3) sennosides 8.6 mg tablet 8.6 mg PO BID 12/29/22 01/02/23 Allergies Allergy/AdvReac Type Severity Reaction Status Date / Time No Known Allergies Allergy Verified 12/20/22 18:44 Review of Systems Review of Systems: All systems reviewed & are unremarkable except as noted in HPI and below PMFSH Past Medical History Medical History Acute on chronic anemia Atrial fibrillation She is unsure whether she was told she had atrial fibrillation in the past. Closed fracture of lateral condyle of right femur Hematoma following procedure Hypertension Intertrochanteric fracture of right femur Migraine Occult blood in stools Synovitis of shoulder Transient global amnesia Had an episode 10/2018 of transient aphasia that resolved spontaneously and was felt may have been related to her complex migraines. Surgical History Surgical History H/O breast biopsy Benign H/O cataract removal with insertion of prosthetic lens Around 2008, Bilateral History of mandibular surgery TMJ repair Previous back surgery Around 2016 Family History Family History Mother Heart failure Father Black lung disease Social History Social History Social History: Ms. Salas lives at home with her in [place]. 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 She reports around 2 drinks of wine per week; never smoker; no other substance use. Her PCP is Dr Eduardo Cheney and her Intensive Care Medicine Specialist is Dr Lane with [facility] in [place]. She designates her daughter, Aminta Castellanos, as her surrogate decision maker and wishes to be full code status. Smoking status: Never smoker Second hand tobacco smoke exposure: Yes Alcohol intake: former Drinks per week: 1 Substance use: never Substance use type: does not use Other substance usage details: has used narcotic analgesics post op as prescribed Living arrangements: with family Additional living arrangements comments: Lives with Gender identi
[2023-03-13 12:01] VITALS: BP 161/82; PULSE 81; RESP 20; TEMP 36.3; O2SAT 98
--- NOTE | 2023-03-13 12:08 | ECG_ITS ---
Measurements Intervals [place] Rate: 73 P: 50 AK: 161 QRS: -42 QRSD: 98 T: -1 QT: 405 QTc: 448 Interpretive Statements SINUS RHYTHM WITH OCCASIONAL VENTRICULAR PREMATURE COMPLEXES WITH OCCASIONAL SUPRAVENTRICULAR PREMATURE COMPLEXES LEFT AXIS DEVIATION [QRS AXIS < -30] ABNORMAL ECG COMPARED TO ECG 12/29/2022 13:10:34 SINUS RHYTHM REPLACES ATRIAL FIBRILLATION Electronically Signed On 03-13-2023 16:14:47 CDT by Ino Montana M.D.
[2023-03-13 12:31] LABS: Basophils Absolute Auto 0.06 K/mm3 (0.00-0.10); Basophils Percent Auto 1.1 % (0.0-1.0); Eosinophils Absolute Auto 0.14 K/mm3 (0.02-0.50); Eosinophils Percent Auto 2.5 % (1.0-6.0); Hematocrit 38.5 % (35.0-42.0); Hemoglobin 12.7 g/dL (11.7-13.8); Immature Granulocyte Absolute 0.01 K/mm3 (0.00-0.00); Immature Granulocyte Percent A 0.2 % (0.0-0.0); Lymphocytes Absolute Auto 1.19 K/mm3 (1.10-4.50); Lymphocytes Percent Auto 20.9 % (18.0-42.0); Mean Corpuscular Hemoglobin 29.4 pg (27.0-31.0); Mean Corpuscular Volume 89.1 fL (78.0-102.0); Mean Platelet Volume 10.7 fl (9.2-11.8); Monocytes Absolute Auto 0.49 K/mm3 (0.10-0.90); Monocytes Percent Auto 8.6 % (2.0-11.0); Neutrophils Absolute Auto 3.8 K/mm3 (1.7-7.2); Neutrophils Percent Auto 66.7 % (50.0-70.0); Platelet Count Result 204 K/mm3 (150-420); Red Blood Count 4.32 M/mm3 (4.20-5.40); Red Cell Distribution Width 14.9 % (11.6-14.4); White Blood Count 5.7 K/mm3 (4.8-10.8)
[2023-03-13 12:32] LABS: Appearance Urine Clear (Clear); Bilirubin Urine Negative (Negative); Blood Urine Negative (Negative); Color Urine Light Yellow (Yellow); Glucose Urine UA Negative (Negative); Ketones Urine 1+ (Negative); Leukocyte Esterase Ur Negative LEU/UL (Negative); Nitrate Urine Negative (Negative); Protein Urine Negative (Negative); Urobilinogen Urine 0.2 mg/dL (0.2-1.0); pH Urine 7.5 (5.0-8.0)
[2023-03-13 12:38] LABS: Add Urine Microscopic? YES; Bacteria Urine Trace /hpf; RBC Urine None seen /hpf (0-2); Renal Epithelial Cells Urine Rare /hpf; Squamous Epithelial Cell Urine Rare /hpf (Few); WBC Urine None seen /hpf (0-3)
[2023-03-13 12:56] LABS: Alanine Aminotransferase 12 U/L (14-59); Albumin Level 3.6 g/dL (3.4-5.0); Alkaline Phosphatase 106 U/L (46-116); Anion Gap 11 mmol/L (8-16); Aspartate Amino Transferase 19 U/L (15-37); Bilirubin,Total 0.5 mg/dL (0.00-1.00); Blood Urea Nitrogen 14 mg/dL (7-18); Calcium 9.6 mg/dL (8.5-10.1); Carbon Dioxide 26 mmol/L (21-32); Chloride 105 mmol/L (98-108); Estimated CRCL calculation 34 ml/min; Estimated Glomerular Filt Rate 60; Glucose 90 mg/dL (70-99); Osmolality Calculated 294 mOsm/kg (285-295); Potassium 3.6 mmol/L (3.5-5.1); Sodium 142 mmol/L (136-145); Total Protein 7.3 g/dL (6.4-8.2); Troponin I 9.1 ng/L (0.00-60.4)
== END 2023-03-13 13:16 | disposition home or self-care (01) ==
PROVIDERS: Emergency Provider Emergency Medicine; PCP Internal Medicine
DX: I49.3 Ventricular premature depolarization (principal); R42 Dizziness and giddiness; I10 Essential (primary) hypertension; Z79.82 Long term (current) use of aspirin
CPT/HCPCS: 36415; 80053; 81001; 83735; 84484; 85025; 93005; 99284

== ENCOUNTER 2023-04-20 07:31 | Outpatient (CLI) | payer MEDICARE, SELFPAY ==
[2023-04-20 08:06] LABS: Basophils Absolute Auto 0.07 K/mm3 (0.00-0.10); Basophils Percent Auto 1.3 % (0.0-1.0); Eosinophils Absolute Auto 0.19 K/mm3 (0.02-0.50); Eosinophils Percent Auto 3.4 % (1.0-6.0); Hematocrit 41.9 % (35.0-42.0); Hemoglobin 13.7 g/dL (11.7-13.8); Immature Granulocyte Absolute 0.02 K/mm3 (0.00-0.00); Immature Granulocyte Percent A 0.4 % (0.0-0.0); Lymphocytes Absolute Auto 1.82 K/mm3 (1.10-4.50); Lymphocytes Percent Auto 32.6 % (18.0-42.0); Mean Corpuscular HGB Conc 32.7 g/dL (32.0-36.0); Mean Corpuscular Volume 88.6 fL (78.0-102.0); Mean Platelet Volume 10.7 fl (9.2-11.8); Monocytes Absolute Auto 0.41 K/mm3 (0.10-0.90); Monocytes Percent Auto 7.3 % (2.0-11.0); Neutrophils Absolute Auto 3.1 K/mm3 (1.7-7.2); Platelet Count Result 213 K/mm3 (150-420); Red Blood Count 4.73 M/mm3 (4.20-5.40); Red Cell Distribution Width 16.8 % (11.6-14.4); White Blood Count 5.6 K/mm3 (4.8-10.8)
[2023-04-20 08:36] LABS: Appearance Urine Clear (Clear); Bilirubin Urine Negative (Negative); Blood Urine 1+ (Negative); Color Urine Light Yellow (Yellow); Glucose Urine UA Negative (Negative); Ketones Urine Negative (Negative); Leukocyte Esterase Ur 1+ LEU/UL (Negative); Nitrate Urine Negative (Negative); Protein Urine Negative (Negative); Specific Grav Ur 1.015 (1.010-1.020); Urobilinogen Urine 0.2 mg/dL (0.2-1.0)
[2023-04-20 08:43] LABS: Add Urine Microscopic? YES; Bacteria Urine Trace /hpf; Squamous Epithelial Cell Urine Moderate /hpf (Few)
[2023-04-20 13:25] LABS: Alanine Aminotransferase 21 U/L (14-59); Albumin Level 3.5 g/dL (3.4-5.0); Alkaline Phosphatase 91 U/L (46-116); Anion Gap 10 mmol/L (8-16); Aspartate Amino Transferase 17 U/L (15-37); Bilirubin,Total 0.5 mg/dL (0.00-1.00); Blood Urea Nitrogen 16 mg/dL (7-18); Calcium 9.6 mg/dL (8.5-10.1); Carbon Dioxide 27 mmol/L (21-32); Chloride 106 mmol/L (98-108); Estimated Glomerular Filt Rate 58; Glucose 82 mg/dL (70-99); Magnesium 2.2 mg/dL (1.8-2.4); Osmolality Calculated 296 mOsm/kg (285-295); Potassium 4.2 mmol/L (3.5-5.1); Sodium 143 mmol/L (136-145); Total Protein 6.9 g/dL (6.4-8.2)
[2023-04-21 08:59] LABS: Ferritin 250 ng/mL (8-252); Free T3 2.48 pg/mL (2.18-3.98); Free T4 Free Thyroxine 1.07 ng/dL (0.76-1.46); Iron 90 ug/dL (50-170); NT Pro B Type Natriuretic Pept 199 pg/mL (0-450)
== END 2023-04-20 07:32 | disposition home or self-care (01) ==
LOC: CHSLAB 07:33
PROVIDERS: PCP Internal Medicine; Visit Provider Internal Medicine
DX: D50.9 Iron deficiency anemia, unspecified (principal); I10 Essential (primary) hypertension; I49.3 Ventricular premature depolarization; I48.0 Paroxysmal atrial fibrillation; N39.0 Urinary tract infection, site not specified; R06.02 Shortness of breath
CPT/HCPCS: 36415; 80053; 81001; 82728; 83540; 83735; 83880; 84439; 84443; 84481; 85025; 87086; 87088

== ENCOUNTER 2023-05-25 07:55 | Outpatient (CLI) | payer MEDICARE, SELFPAY ==
[2023-05-25 08:44] LABS: Anion Gap 9 mmol/L (8-16); Blood Urea Nitrogen 22 mg/dL (7-18); Calcium 9.5 mg/dL (8.5-10.1); Carbon Dioxide 28 mmol/L (21-32); Chloride 105 mmol/L (98-108); Estimated Glomerular Filt Rate > 60; Glucose 84 mg/dL (70-99); Osmolality Calculated 296 mOsm/kg (285-295); Potassium 4.1 mmol/L (3.5-5.1); Sodium 142 mmol/L (136-145)
== END 2023-05-25 07:56 | disposition home or self-care (01) ==
LOC: CHSLAB 07:57
PROVIDERS: PCP Internal Medicine; Visit Provider Internal Medicine
DX: I10 Essential (primary) hypertension (principal)
CPT/HCPCS: 36415; 80048

== ENCOUNTER 2023-11-10 07:40 | Outpatient (CLI) | payer MEDICARE, SELFPAY ==
[2023-11-10 07:55] LABS: Basophils Absolute Auto 0.08 K/mm3 (0.00-0.10); Basophils Percent Auto 1.5 % (0.0-1.0); Eosinophils Absolute Auto 0.18 K/mm3 (0.02-0.50); Eosinophils Percent Auto 3.3 % (1.0-6.0); Hemoglobin 13.6 g/dL (11.7-13.8); Immature Granulocyte Absolute 0.01 K/mm3 (0.00-0.00); Immature Granulocyte Percent A 0.2 % (0.0-0.0); Lymphocytes Absolute Auto 1.85 K/mm3 (1.10-4.50); Lymphocytes Percent Auto 33.8 % (18.0-42.0); Mean Corpuscular HGB Conc 32.4 g/dL (32-36); Mean Corpuscular Hemoglobin 30.3 pg (27.0-31.0); Mean Corpuscular Volume 93.5 fL (78.0-102.0); Monocytes Percent Auto 9.1 % (2.0-11.0); Neutrophils Absolute Auto 2.86 K/mm3 (1.70-7.20); Neutrophils Percent Auto 52.1 % (50.0-70.0); Platelet Count Result 205 K/mm3 (150-420); Red Blood Count 4.49 M/mm3 (4.20-5.40); Red Cell Distribution Width 14.1 % (11.6-14.4); White Blood Count 5.5 K/mm3 (4.8-10.8)
[2023-11-10 07:57] LABS: Appearance Urine Clear (Clear); Bilirubin Urine Negative (Negative); Blood Urine 1+ (Negative); Color Urine Light Yellow (Yellow); Glucose Urine UA Negative (Negative); Ketones Urine Negative (Negative); Leukocyte Esterase Ur 1+ LEU/UL (Negative); Nitrate Urine Negative (Negative); Protein Urine Negative (Negative); Urobilinogen Urine 0.2 mg/dL (0.2-1.0)
[2023-11-10 08:05] LABS: Add Urine Microscopic? YES; Bacteria Urine Rare /hpf; RBC Urine 0-2 /hpf (0-2); Squamous Epithelial Cell Urine Rare /hpf (Few); WBC Urine 0-3 /hpf (0-3)
[2023-11-10 09:15] LABS: Alanine Aminotransferase 29 U/L (14-59); Albumin Level 3.5 g/dL (3.4-5.0); Alkaline Phosphatase 93 U/L (46-116); Anion Gap 7 mmol/L (4-12); Aspartate Amino Transferase 26 U/L (15-37); Bilirubin,Total 0.6 mg/dL (0.00-1.00); Blood Urea Nitrogen 22 mg/dL (7-18); Carbon Dioxide 30 mmol/L (21-32); Chloride 105 mmol/L (98-108); Cholesterol 224 mg/dL (0-200); Estimated Glomerular Filt Rate 59; Free T4 Free Thyroxine 0.89 ng/dL (0.76-1.46); Glucose 81 mg/dL (70-99); HDL Direct 70 mg/dL (40-60); LDL Cholesterol Calculated 144 mg/dL (<130); Osmolality Calculated 296 mOsm/kg (285-295); Potassium 4.3 mmol/L (3.5-5.1); Sodium 142 mmol/L (136-145); Thyroid Stimulating Hormone 3.94 uIU/mL (0.36-3.74); Total Protein 6.9 g/dL (6.4-8.2); Triglycerides 50 mg/dL (0-150)
[2023-11-11 22:04] LABS: Vitamin D 25 Hydroxy 56 ng/mL (30-100)
== END 2023-11-10 07:41 | disposition home or self-care (01) ==
LOC: CHSLAB 07:42
PROVIDERS: PCP Internal Medicine; Visit Provider Internal Medicine
DX: E78.2 Mixed hyperlipidemia (principal); I10 Essential (primary) hypertension; M81.0 Age-related osteoporosis without current pathological fracture; N39.0 Urinary tract infection, site not specified; R53.83 Other fatigue
CPT/HCPCS: 36415; 80053; 80061; 81001; 82306; 84439; 84443; 85025; 87086; 87088

== ENCOUNTER 2023-12-02 12:35 | Outpatient (CLI) | payer MEDICARE, SELFPAY ==
--- NOTE | ~2023-12-02 | DEXA_ITS ---
? Bone Density Report? Name:? DAISY BRAVO A Patient ID:??? [id number] Age:? 83 Sex:? Female Ethnicity:? White Date of : 1940 Indication: postmenopausal; screening for osteoporosis; parental hip fracture; height loss; prior fracture; Referring Provider: Eduardo Cheney Study: Bone densitometry was performed. Exam Date: December 02, 2023 Accession number: [id number] Bone Density: Region?BMD??? T-score? Z-score?? Classification AP Spine(L1, L2)? 0.732?? -2.2?0.4? Osteopenia Femoral Neck (Left)? 0.465?? -3.5? -0.9? Osteoporosis Total Hip (Left)? 0.549?? -3.2? -0.9? Osteoporosis World Health Organization criteria for BMD impression classify patients as: Normal (T-score at or above -1.0), Osteopenia (T-score between -1.0 and -2.5), or Osteoporosis (T-score at or below -2.5). 10-year Fracture Risk: FRAX not reported because: ? Some T-score for Spine Total or Hip Total or Femoral Neck at or below -2.5 ? Prior hip or vertebral fracture Clinical Information Provided by Patient: Have had a previous hip or vertebral fracture Has had a low trauma fracture Parent has had a hip fracture Has used the following medications: Vitamin D, Calcium, multi Patient maximum height was 61 Menopause Age: 46 No regular weight bearing exercise Drinks caffeinated beverages Onset of menses at age 11 Number of children 2 Impression: The patient has established osteoporosis, based on the Left Femoral Neck T-score and the existence of a prior fracture. The patient has risk factors, including: parental hip fracture, previous fracture. Discussion: HIGH RISK OF FRACTURE. BONE DENSITY IS UNDESIRABLY LOW AT ONE OR MORE SKELETAL SITES, CONSISTENT WITH POSTMENOPAUSAL OSTEOPOROSIS. This patient's lowest T-score, in a patient who has previously fractured,? meets the World Health Organization's (WHO) criteria for severe osteoporosis. In untreated patients, the risk of osteoporotic fracture increases approximately two-fold for each 1.0 SD decrease in T-score.? Low bone density is not the only risk factor for fracture; also consider factors such as patient's age, frailty or poor health, risk of falling, risk of injury, previous osteoporotic fracture, family history of osteoporosis, cigarette smoking, low body weight, etc.? Not everyone with low bone mineral density has osteoporosis; osteomalacia and other metabolic bone disorders should also be considered. Patients who have osteoporosis should be evaluated for specific diseases and conditions (secondary causes) that may cause or contribute to bone loss.? The [place] [employer]ocrinologists (AACE) and National Osteoporosis Foundation (NOF) recommend pharmacologic intervention for all postmenopausal women with a previous hip or vertebral fracture and a T-score in this range. The patient should follow a healthful lifestyle (good nutrition with adequate calcium and vitamin D, and appropriate weight-bearing exercise). Follow-Up: Consider a re
== END 2023-12-02 12:36 | disposition home or self-care (01) ==
LOC: CHSIMG 12:37
PROVIDERS: PCP Internal Medicine; Visit Provider Internal Medicine
DX: Z78.0 Asymptomatic menopausal state (principal); M81.0 Age-related osteoporosis without current pathological fracture; M85.88 Other specified disorders of bone density and structure, other site
CPT/HCPCS: 77080

== ENCOUNTER 2024-05-05 07:03 | Outpatient (CLI) | payer MEDICARE, SELFPAY ==
[2024-05-05 07:29] LABS: Add Urine Microscopic? YES; Appearance Urine Clear (Clear); Bilirubin Urine Negative (Negative); Blood Urine Trace-intact (Negative); Color Urine Light Yellow (Yellow); Glucose Urine UA Negative (Negative); Ketones Urine Negative (Negative); Leukocyte Esterase Ur Trace LEU/UL (Negative); Nitrate Urine Negative (Negative); Protein Urine Negative (Negative); Urobilinogen Urine 0.2 mg/dL (0.2-1.0)
[2024-05-05 07:30] LABS: Basophils Absolute Auto 0.07 K/mm3 (0.00-0.10); Basophils Percent Auto 1.2 % (0.0-1.0); Eosinophils Absolute Auto 0.23 K/mm3 (0.02-0.50); Hematocrit 40.4 % (35.0-42.0); Hemoglobin 13.6 g/dL (11.7-13.8); Immature Granulocyte Absolute 0.01 K/mm3 (0.00-0.00); Immature Granulocyte Percent A 0.2 % (0.0-0.0); Lymphocytes Absolute Auto 2.09 K/mm3 (1.10-4.50); Lymphocytes Percent Auto 36.5 % (18.0-42.0); Mean Corpuscular HGB Conc 33.7 g/dL (32-36); Mean Corpuscular Hemoglobin 31.1 pg (27.0-31.0); Mean Corpuscular Volume 92.2 fL (78.0-102.0); Mean Platelet Volume 10.1 fl (9.2-11.8); Monocytes Absolute Auto 0.54 K/mm3 (0.10-0.90); Monocytes Percent Auto 9.4 % (2.0-11.0); Neutrophils Absolute Auto 2.79 K/mm3 (1.70-7.20); Neutrophils Percent Auto 48.7 % (50.0-70.0); Platelet Count Result 201 K/mm3 (150-420); Red Blood Count 4.38 M/mm3 (4.20-5.40); Red Cell Distribution Width 13.8 % (11.6-14.4); White Blood Count 5.7 K/mm3 (4.8-10.8)
[2024-05-05 07:35] LABS: Bacteria Urine Trace /hpf; RBC Urine 0-2 /hpf (0-2); Squamous Epithelial Cell Urine Few /hpf (Few); WBC Urine 0-3 /hpf (0-3)
[2024-05-05 08:09] LABS: Alanine Aminotransferase 22 U/L (14-59); Albumin Level 3.4 g/dL (3.4-5.0); Alkaline Phosphatase 79 U/L (46-116); Anion Gap 8 mmol/L (4-12); Aspartate Amino Transferase 24 U/L (15-37); Bilirubin,Total 0.7 mg/dL (0.00-1.00); Blood Urea Nitrogen 21 mg/dL (7-18); Calcium 8.9 mg/dL (8.5-10.1); Carbon Dioxide 27 mmol/L (21-32); Chloride 106 mmol/L (98-108); Cholesterol 224 mg/dL (0-200); Estimated Glomerular Filt Rate 59; Free T4 Free Thyroxine 0.93 ng/dL (0.76-1.46); Glucose 88 mg/dL (70-99); HDL Direct 71 mg/dL (40-60); LDL Cholesterol Calculated 135 mg/dL (<130); NT Pro B Type Natriuretic Pept 357 pg/mL (0-450); Osmolality Calculated 294 mOsm/kg (285-295); Sodium 141 mmol/L (136-145); Thyroid Stimulating Hormone 4.51 uIU/mL (0.36-3.74); Total Protein 6.7 g/dL (6.4-8.2); Triglycerides 89 mg/dL (0-150)
== END 2024-05-05 07:04 | disposition home or self-care (01) ==
LOC: CHSLAB 07:04
PROVIDERS: PCP Internal Medicine; Visit Provider Internal Medicine
DX: I48.0 Paroxysmal atrial fibrillation (principal); I49.3 Ventricular premature depolarization; I10 Essential (primary) hypertension; R94.6 Abnormal results of thyroid function studies; E78.2 Mixed hyperlipidemia; R06.02 Shortness of breath
CPT/HCPCS: 36415; 80053; 80061; 81001; 83880; 84439; 84443; 84481; 85025

== ENCOUNTER 2024-06-14 21:25 | Emergency (ER) | payer MEDICARE, SELFPAY ==
--- NOTE | ~2024-06-14 | CT_ITS ---
EXAMINATION: CT thoracic lumbar wo con DATE: 06/14/2024 22:18 INDICATION: Low back pain. TECHNIQUE: Computed tomography (CT) of the thoracic and lumbar spine was performed without intravenou s contrast. Automated exposure control and iterative reconstruction technique were employed. The dose -length product was 616 mGy-cm. COMPARISON: CT 02/18/2023 FINDINGS: CT THORACIC SPINE: Calcified mediastinal and right hilar lymph nodes are consistent with old granulom atous disease. There is 17 degrees levoscoliosis of upper thoracic spine and 8 degrees dextrocurvatur e of lower thoracic spine. There is kyphosis of thoracic spine. There is mild chronic height loss of T5, T6, T7, T10, T11, and T12 bodies. There is milder moderately decreased disc height at multiple le vels. There is severely decreased disc height at C6-C7, C7-T1, T1-T2, T2-T3, and T5-T6. There is inte rbody fusion at T8-T9. There is severe joint osteoarthritis of many levels, severe on the mid and upp er thoracic spine. There is mild neural foraminal stenosis at multiple levels on either side. There i s mild central canal stenosis at T6 6-T7, T7-T8, and T11-T12. CT LUMBAR SPINE: There is a 2.1 cm cyst in right kidney. There is 7 degrees levocurvature of lumbar spine. There are chronic compression fractures of L1 and L3. There is a compression fracture of L2 wi th 1/5 loss of height. There is mildly decreased disc height at L1-L2 and severely decreased disc hei ght from L2-L3 through L5-S1. The following disc levels are specifically discussed: L1-L2: The disc does not extend beyond the endplate margin. There is mild bilateral facet joint osteo arthritis. There is no neural foraminal stenosis. There is no central canal stenosis. L2-L3: The disc is bulging. There is mild bilateral facet joint osteoarthritis. There is mild bilater al neural foraminal stenosis. There is mild central canal stenosis. L3-L4: The disc is bulging. There is severe bilateral facet joint osteoarthritis. There is mild bilat eral neural foraminal stenosis. There is mild central canal stenosis. L4-L5: The disc is bulging. There is severe bilateral facet joint osteoarthritis. There is mild bilat eral neural foraminal stenosis. There is mild central canal stenosis. L5-S1: The disc is bulging. There is severe bilateral facet joint osteoarthritis. There is mild bilat eral neural foraminal stenosis. There is mild central canal stenosis. IMPRESSION: 1. Age-indeterminate L2 compression fracture, new from 02/18/2023. 2. Severe thoracic and lumbar spondylosis. Reviewed, dictated and finalized at location A. EL WORKER
[2024-06-14 21:25] VITALS: BP 162/75; PULSE 83; RESP 20; TEMP 36.3; O2SAT 99
--- NOTE | 2024-06-14 21:32 | ED.GENADULT ---
HPI - General Adult General Chief complaint: Back Pain/Injury Stated complaint: lower back pain Time Seen by Provider: 06/14/24 21:32 Source: patient Mode of arrival: ambulatory Limitations: no limitations History of Present Illness HPI narrative: 84-year-old white female comes planes of bilateral lower back pain right greater than left started 2 nights ago. Patient rates pain as a 10 out of 10. She has been lifting some heavy groceries 1-2 days prior to this. She has history of back surgery. patient took tramadol 730 about 2 hours ago has not really had much relief with this. She uses a walker but just at nighttime to get up and go the bathroom. Yesterday she was taking Tylenol every 6 hours which also did not help much. Denies any numbness or weakness problems voiding or stooling or urinary or fecal incontinence. Denies any cough fever sore throat runny nose problems walking talking seeing or hearing. Denies any other complaints. patient history of lumbar surgery in 2017 has not really had any back pain since Until the other night. Related Data Home Medications Medication Instructions Recorded Confirmed aspirin 81 mg tablet,delayed 81 mg PO DAILY 09/21/19 06/14/24 release (Kervin Low Dose Aspirin) cranberry 500 mg capsule 500 mg PO DAILY 09/21/19 06/14/24 metoprolol succinate 25 mg 12.5 mg PO DAILY 09/21/19 06/14/24 tablet,extended release 24 hr abruecuxsxxm-Mj-uzko-minerals 1 tablet PO DAILY 09/21/19 06/14/24 (Multiple Vitamin, Womens tablet) acetaminophen 325 mg tablet 650 mg PO Q4H PRN Pain (Scale 12/29/22 06/14/24 Score 1-3) apixaban 2.5 mg tablet (Eliquis) 2.5 mg PO DAILY 06/14/24 06/14/24 lisinopril 20 mg tablet 20 mg PO DAILY 06/14/24 06/14/24 Allergies Allergy/AdvReac Type Severity Reaction Status Date / Time No Known Allergies Allergy Verified 12/20/22 18:44 Review of Systems Review of Systems: All systems reviewed & are unremarkable except as noted in HPI and below PMFSH Past Medical History Medical History Acute on chronic anemia Atrial fibrillation She is unsure whether she was told she had atrial fibrillation in the past. Closed fracture of lateral condyle of right femur Hematoma following procedure Hypertension Intertrochanteric fracture of right femur Migraine Occult blood in stools Synovitis of shoulder Transient global amnesia Had an episode 10/2018 of transient aphasia that resolved spontaneously and was felt may have been related to her complex migraines. Surgical History Surgical History H/O breast biopsy Benign H/O cataract removal with insertion of prosthetic lens Around 2008, Bilateral History of mandibular surgery TMJ repair Previous back surgery Around 2016 Family History Family History Mother Heart failure Father Black lung disease Social History Social History Social History: Ms. Salas lives at home with her in [place]. 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 She reports around 2 drinks of wine per week; never smoker; no other substance use. Her PCP is Dr Eduardo Cheney and her Senior Sql Database Developer is Dr Lane with [facility] in [place]. She designates her daughter, Aminta Castellanos, as her surrogate decision maker and wishes to be full code status. Smoking status: Never smoker Second hand tobacco smoke exposure: Yes Alcohol intake: former Drinks per week: 1 Substance use: never Substance use type: does not use Other substance usage details: has used narcotic analgesics post op as prescribed Living arrangements: with family Additional living arrangements comments: Lives with Gender identity (if verbalized by the patient): Female Spiritual care concerns: No (active Bahai) Agree to blood products: Yes Comments Patient is on Eliquis anticoagulation Exam Narrative: White female patient with Moderate apparent distress.? Head normocephalic, atraumatic.? Eyes conjunctiva pink sclera nonicteric.? Extraocular movements are intact.? Ears externally normal.? Oropharynx is clear with moist mucous membranes without exudates.? Neck is supple nontender no lymphadenopathy.? Back is tender in the right para lumbar area. She has a lumbar well-healed surgical scar. There is no spinal tenderness. There is no other back tenderness. She has a negative straight leg raise bilaterally. Lungs are clear.? Heart is regular rate and rhythm With occasional extra beat without murmurs gallops or rubs.? Chest wall nontender. Abdomen is soft and nontender no hepatosplenomegaly or masses no CVA tenderness no abdominal bruits.? Extremities no cyanosis clubbing or edema.? Skin is warm and dry without rashes or lesions.? Neurological patient is alert and oriented x4.? Motor and sensory grossly intact.? Gait is normal. Course Vital Signs Vital signs: Vital Signs Temperature 36.3 C L 06/14/24 21:25 Pulse Rate 83 06/14/24 21:25 Respiratory Rate 20 06/14/24 21:25 Blood Pressure 162/75 H 06/14/24 21:25 Pulse Oximetry 99 06/14/24 21:25 Oxygen Delivery Room Air 06/14/24 21:25 Temperature 36.3 C L 06/14/24 21:25 Pulse Rate 83 06/14/24 21:25 Respiratory Rate 20 06/14/24 21:25 Blood Pressure 162/75 H 06/14/24 21:25 Pulse Oximetry 99 06/14/24 21:25 Oxygen Delivery Room Air 06/14/24 21:25 Medical Decision Making MDM Narrative Medical decision making narrative: Patient placed in room: 2 with her ? History and physical was performed. CT lumbar or thoracic spine without contrast Per radiologist: CT THORACIC SPINE: Calcified mediastinal and right hilar lymph nodes are consistent with old granulomatous disease. There is 17 degrees levoscoliosis of upper thoracic spine and 8 degrees dextrocurvature of lower thoracic spine. There is kyphosis of thoracic spine. There is mild chronic height loss of T5, T6, T7, T10, T11, and T12 bodies. There is milder moderately decreased disc height at multiple levels. There is severely decreased disc height at C6-C7, C7-T1, T1-T2, T2-T3, and T5-T6. There is interbody fusion at T8-T9. There is severe joint osteoarthritis of many levels, severe on the mid and upper thoracic spine. There is mild neural foraminal stenosis at multiple levels on either side. There is mild central canal stenosis at T6 6-T7, T7-T8, and T11-T12. CT LUMBAR SPINE: There is a 2.1 cm cyst in right kidney. There is 7 degrees levocurvature of lumbar spine. There are chronic compression fractures of L1 and L3. There is a compression fracture of L2 with 1/5 loss of height. There is mildly decreased disc height at L1-L2 and severely decreased disc height from L2-L3 through L5-S1. The following disc levels are specifically discussed: L1-L2: The disc does not extend beyond the endplate margin. There is mild bilateral facet joint osteoarthritis. There is no neural foraminal stenosis. There is no central canal stenosis. L2-L3: The disc is bulging. There is mild bilateral facet joint osteoarthritis. There is mild bilateral neural foraminal stenosis. There is mild central canal stenosis. L3-L4: The disc is bulging. There is severe bilateral facet joint osteoarthritis. There is mild bilateral neural foraminal stenosis. There is mild central canal stenosis. L4-L5: The disc is bulging. There is severe bilateral facet joint osteoarthritis. There is mild bilateral neural foraminal stenosis. There is mild central canal stenosis. L5-S1: The disc is bulging. There is severe bilateral facet joint osteoarthritis. There is mild bilateral neural foraminal stenosis. There is mild central canal stenosis. IMPRESSION: 1. Age-indeterminate L2 compression fracture, new from 02/18/2023. 2. Severe thoracic and lumbar spondylosis. Independent Historian: External Source Review: February 18, 2023 showed mild chronic vertebral fractures of T6, T12 and L1.? Severe spondylosis of the lower cervical and thoracic lumbar spine with no acute abnormality of the thoracic or lumbar spine. November of this year she had abnormal bone density test consistent with osteoporosis Differential Dx includes but not limited to: spondylosis vertebral fracture lumbar strain tumor Medications were Reviewed: Home meds reviewed Medications given: Elbridge 5 , this was repeated prior to discharge Independently Interpreted by me: Shared decision Making: evaluation was discussed all questions were asked and answered and patient agreed with the plan. 09/15/2051 she says her pain is a 9 or 10 it is slowly easing. she would take Elbridge 5 4 times a day follow-up with Dr. Cheney tomorrow to discuss further evaluation and treatment. She would use ice and/or low heating pad for 20 minutes use something for constipation: Prunes and or Colace fiber supplement. she would also take my case in nasal spray 1 spray daily to 1 nostril and alternating nostrils every other day. Social Situation Impacting Patients Care: patient on Eliquis , history osteoporosis Discussed with Dr. DISCHARGE DIAGNOSIS: Acute low back pain age-indeterminate L2 compression fracture new from January 2023 severe thoracic and lumbar spondylosis DISPOSITION : discharge home CONDITION AT DISCHARGE: stable Vital Signs Vital Signs: Vital Signs Temperature 36.3 C L 06/14/24 21:25 Pulse Rate 83 06/14/24 21:25 Respiratory Rate 20 06/14/24 21:25 Blood Pressure 162/75 H 06/14/24 21:25 Pulse Oximetry 99 06/14/24 21:25 Oxygen Delivery Room Air 06/14/24 21:25 Temperature 36.3 C L 06/14/24 21:25 Pulse Rate 83 06/14/24 21:25 Respiratory Rate 20 06/14/24 21:25 Blood Pressure 162/75 H 06/14/24 21:25 Pulse Oximetry 99 06/14/24 21:25 Oxygen Delivery Room Air 06/14/24 21:25 Discharge Plan Discharge Clinical Impression: Lumbar spondylosis, Spondylosis of thoracic spine Acute back pain Qualifiers: Back pain location: low back pain Back pain laterality: right Sciatica presence: without sciatica Qualified Code(s): M54.50 - Low back pain, unspecified Closed compression fracture of L2 vertebra Qualifiers: Encounter type: initial encounter Qualified Code(s): S32.020A - Wedge compression fracture of second lumbar vertebra, initial encounter for closed fracture Patient Disposition: Home, Self-Care Condition: Stable Instructions: Vertebral Compression Fracture (ED), Arthritis (ED) Additional Instructions: ice packs and or low heating pad for 20 minutes as needed for pain. Elbridge 5 4 times a day as needed for pain. Follow-up with Dr. Cheney tomorrow to discuss further evaluation and treatment. Take something to avoid constipation like prunes, Colace 100 mg twice a day [id number]-[id number], fiber supplement, MiraLax. Return if you get worse or develops any new symptoms Prescriptions: New hydrocodone-acetaminophen 5-325 mg tablet 1 tablet PO Q6H PRN (Reason: pain) Qty: 15 0RF calcitonin (salmon) 200 unit/actuation spray,non-aerosol 1 spray intranasal (ALT) DAILY Qty: 3.7 0RF No Action aspirin [Kervin Low Dose Aspirin] 81 mg Tablet,Delayed Release (Dr/Ec) 81 mg PO DAILY metoprolol succinate 25 mg tablet extended release 24 hr 12.5 mg PO DAILY cranberry 500 mg Capsule 500 mg PO DAILY Multiple Vitamin, Womens Tablet 1 tablet PO DAILY lisinopril 20 mg tablet 20 mg PO DAILY Eliquis 2.5 mg tablet 2.5 mg PO DAILY acetaminophen 325 mg Tablet 650 mg PO Q4H PRN (Reason: Pain (Scale Score 1-3)) ferrous sulfate 325 mg (65 mg iron) Tablet 325 mg PO BIDWM Qty: 60 0RF tramadol 50 mg Tablet 50 mg PO Q6H PRN (Reason: Pain Rated 4-6) Qty: 14 0RF Follow-up/Referrals: Eduardo Cheney MD [Primary Care Provider] - 06/15/24 Time of Disposition: 23:32
[2024-06-14] MEDS: HYDROcodone/acetaminophen (*CRX) 5-325 MG TABLET 1 TAB PO ×2 (22:12→23:19)
[2024-06-14 23:43] VITALS: BP 154/82; PULSE 81; RESP 18; O2SAT 99
== END 2024-06-14 23:43 | disposition home or self-care (01) ==
PROVIDERS: Emergency Provider Emergency Medicine; PCP Internal Medicine
DX: M47.816 Spondylosis without myelopathy or radiculopathy, lumbar region (principal); M47.814 Spondylosis without myelopathy or radiculopathy, thoracic region; S32.020A Wedge compression fracture of second lumbar vertebra, initial encounter for closed fracture; Z79.82 Long term (current) use of aspirin; Z79.899 Other long term (current) drug therapy; Z79.01 Long term (current) use of anticoagulants; I48.91 Unspecified atrial fibrillation; I10 Essential (primary) hypertension; X50.0XXA Overexertion from strenuous movement or load, initial encounter
CPT/HCPCS: 72128; 72131; 99284; A9270

== ENCOUNTER 2024-06-21 10:41 | Outpatient (CLI) | payer MEDICARE, SELFPAY ==
--- NOTE | ~2024-06-21 | MR_ITS ---
EXAMINATION: MR lumbar spine wo con DATE: 06/21/2024 11:19 INDICATION: Age-related osteoporosis with current pathologic fracture. TECHNIQUE: Magnetic resonance imaging (MRI) of the lumbar spine was performed without intravenous con trast. COMPARISON: Lumbar spine CT 06/14/2024 FINDINGS: There is 10 degrees levoscoliosis of thoracolumbar spine. There is 3 mm retrolisthesis of L 2 on L3. There is mild chronic anterior wedging of T10 and T12 vertebral bodies. There is a chronic c ompression fracture of L1 with 2/5 loss of height. There is a compression fracture of L2 with 1/5 los s of height and edema-like marrow signal intensity. There is a chronic compression fracture of L3 wit h 2/5 loss of height centrally. There is severely decreased disc height from L2-L3 through L5-S1 with endplate remodeling. The distal spinal cord signal intensity is normal. The conus medullaris is at L 1. There are cysts in right kidney measuring up to 2.4 cm. The following disc levels are specifically discussed: L1-L2: The disc is bulging and has an annular fissure. There is mild bilateral facet joint osteoarthr itis. There is mild bilateral neural foraminal stenosis. There is mild central canal stenosis. L2-L3: The disc is bulging. There is moderate right and mild left facet joint osteoarthritis. There i s mild bilateral neural foraminal stenosis. There is mild central canal stenosis. L3-L4: The disc is bulging. There is severe bilateral facet joint osteoarthritis. There is mild bilat eral neural foraminal stenosis. There is mild central canal stenosis. There is posterior decompressio n. L4-L5: The disc is bulging and has an annular fissure. There is mild right and severe left facet join t osteoarthritis. There is mild bilateral neural foraminal stenosis. There is mild central canal sten osis. L5-S1: The disc is bulging and has an annular fissure. There is severe bilateral facet joint osteoart hritis. There is mild bilateral neural foraminal stenosis. There is mild central canal stenosis. IMPRESSION: 1. Subacute L2 compression fracture, stable from 06/14/2024. 2. Severe lumbar spondylosis. 3. Thoracolumbar levoscoliosis. Reviewed, dictated and finalized at location A. ING HOME ADMINISTRATOR
== END 2024-06-21 10:42 | disposition home or self-care (01) ==
LOC: MICIMG 10:42
PROVIDERS: PCP Internal Medicine; Visit Provider Pain Medicine Pain Medicine
DX: M81.8 Other osteoporosis without current pathological fracture (principal); M43.06 Spondylolysis, lumbar region; M41.85 Other forms of scoliosis, thoracolumbar region
CPT/HCPCS: 72148

== ENCOUNTER 2024-11-01 07:29 | Outpatient (CLI) | payer MEDICARE, SELFPAY ==
--- OUTSIDE RECORDS SUMMARY | 2024-11-01 07:34 | XMS_ITS | Continuity of Care Document ---
Author Organization [facility] Address [address] [place] [address] Phone Care Team Providers Care Block Press Operator Name Role Phone Poncho Vallejo Unavailable Unavailable [...] Copied on Encounter Office/outpat ient Visit, Est [facility], [address], [place], [place], [id number], [place] tel:[phone] [facility] No Information 0 Genevieve Isaac. [address] , [address], [place], [address], [place]. tel:[phone] [facility], [address], [place], [place], [id number], [place] tel:[phone] [facility] No Information 6- 0 Krishnasamy Gigi. [address] [facility] [address], [place], [place], [facility], [place]. tel:[phone] [facility], [id number] [place] [address] [address], [place], [place], [id number], [place] tel:[phone] [facility] No Information 6- [address] [facility] [address], [place], [place], [facility], [place]. tel:[phone] [facility], [address] [place] [address] [address], [place], [place], [id number], [place] tel:[phone] [facility] No Information 9- [address] [facility] [address], [place], [address], [place]. tel:[phone] [facility], [address], [place], [place], [id number], [place] tel:[phone] [facility] No Information 8- [address] [facility] [address], [place], [address], [place]. tel:[phone] Office/outpat ient Visit, Est [facility], [address], [place], [place], [id number], [place] tel:[phone] [facility] No Information b- 0-201 0 Krishnasamy Gigi. [address] [facility] [address], [place], [place], [facility], [place]. tel:[phone] Referring Provider: Montse Menendez, [address] [place], [address]. tel:[phone] [facility], [address], [place], [place], [id number], [place] tel:[phone] [facility] [address] No Information Oct-2 0-200 9 Krishnasamy Gigi. [address], [place], [facility], [place]. tel:[phone] [facility], [address] [place] [address] [address], [place], [place], [id number], [place] tel:[phone] [facility] No Information Sep-0 8-200 9 Krishnasamy Gigi. [address] [facility] [address], [place], [facility], [place]. tel:[phone] Referring Provider: [place], [address]. tel:[phone] [facility], [address], [place], [place], [id number], [place] tel:[phone] [facility] No Information Sep-0 1-200 9 Krishnasamy Gigi. [address] [facility] [address], [place], [facility], [place]. tel:[phone] [facility], [address], [place], [place], [id number], [place] tel:[phone] [facility] No Information Aug-3 1-200 [address] [address] [place], [facility], [place]. tel:[phone] Referring Provider: [place], [address]. tel:[phone] [facility], [address], [place], [place], [id number], [place] tel:[phone] [facility] No Information 200 9 Aster Yu. [address] [facility] [address], [place], [address], [place]. tel:[phone] Referring Provider: Laura Pang, [place], [address]. tel:[phone] Family History Family Member Type Diagnosis Age At Onset No Information Payers Payer name Insurance type Covered constitution party ID Authoriza tion(s) Medicare [facility] [id number] [id number] [id number] Social History Type Description Quantity Date Captured [...]
--- OUTSIDE RECORDS SUMMARY | 2024-11-01 07:34 | XMS_ITS | Clinical Summary ---
Author Organization [facility] [employer] Address [address] [place] [address] Care Team Providers Care Door To Door Selling Agent Name Role Phone Eduardo Cheney MD Primary Care Provider [phone] Source Comments [facility] [employer],non-owned Affiliates and Associated Physician Practices is amultiple site organization consisting of ambulatory clinics and hospital sitesin [place], [place], [place] and [place]. This disclosure is being madepursuant to the Care Everywhere program and may not contain all information available regarding this patient. Last updated 18.[facility] [employer] Allergies No known active allergies Medications * Be aware that medications may not be up to date on this document. Alwaysverify current medications with the patient. Medication Sig Dispensed Refills Start Date End Date Status Multiple Vitamins-Minerals (Multivitamin Women) TABS Take 1 tablet by mouth once daily Active acetaminophen (Tylenol) 500 MG tablet Take 1 (one) tablet by mouth every 4 hours as needed Maximum allowable Acetaminophen amount = 4 Grams (4000 mg) / 24 hours. 12/27/2022 Active ondansetron, disintegrating, (Zofran ODT) 4 MG tablet Take 1 (one) tablet by mouth every 6 hours as needed for Nausea/Vomiting Allow tablet to dissolve on the tongue 12/27/2022 Active losartan (Cozaar) 50 MG tablet Take 1 (one) tablet by mouth once daily Hold for SBP<110 or DBP<70 12/28/2022 Active metoprolol succinate XL 24hr (Toprol XL) 25 MG tablet Take 0.5 (one-half) tablet by mouth once daily Hold for SBP<110 or DBP<70 12/28/2022 Active lidocaine (Lidoderm) 5 % patch Apply 2 (two) patches to skin every 24 hours Apply patch to most painful area and remove after 12 hours. May reapply a new patch 12 hours later. 12/27/2022 Active polyethylene glycol 3350 (Miralax) 17 g packet Take 17 (seventeen) g by mouth 2 times daily 12/27/2022 Active senna (Senokot) 8.6 MG tablet Take 1 (one) tablet by mouth 2 times daily 12/27/2022 Active ferrous sulfate 325 (65 FE) MG tablet Take 1 (one) tablet by mouth daily with breakfast 12/27/2022 Active Active Problems Problem Noted Date Diagnosed Date Hypoxia 12/26/2022 Closed intertrochanteric fra cture of hip, right, initial encounter 12/25/2022 Impaired mobility and ADLs 12/22/2022 Blood loss anemia 12/22/2022 Fall, initial encounter 12/21/2022 Closed displaced fracture of lateral condyle of right femur, initial encounter 12/21/2022 Immunizations Name Administration Dates Next Due TDAP (7yrs+) 12/21/2022 Social History Tobacco Use Types Packs/Day Years Used Date Smoking Tobacco: Never Smokeless Tobacco: Never Tobacco Cessation:Counseling Given: Not Answered AUDIT-C Answer Date Recorded Q1: How often do you have a drink containing alc ohol? Monthly or less 12/25/2022 Q2: How many drinks containi ng alcohol do you have on a typical day when you are drinking? 1 or 2 12/25/2022 Q3: How often do you have si x or more drinks on one occasion? Never 12/25/2022 Overall Financial Resource Strain (CARDIA) Answe r Date Recorded How hard is it for you to pa y for the very basics like food, housing, medical care, and heating? Not hard at all 12/25/2022 [facility] [place] [facility] Occupat ional Health - Occupational Stress Questionnaire Answer Date Recorded Do you feel stress - tense, restless, nervous, or anxious, or unable to sleep at night because your mind is troubled all the time - these days? Not at all 12/25/2022 Hunger Vital Sign Answer Date Recorded Within the past 12 months, y ou worried that your food would run out before you got the money to buy more. Never true 12/26/19 23 Within the past 12 months, t he food you bought just didn't last and you didn't have money to get more. Never true 12/25/2022 PRAPARE - Transportation Answer Date Re corded In the past 12 months, has l ack of transportation kept you from medical appointments or from getting medications? No 07/2022 In the past 12 months, has l ack of transportation kept you from meetings, work, or from getting things needed for daily living? No 12/25/2022 Housing Stability Vital Sign Answer Jerod e Recorded In the last 12 months, was t here a time when you were not able to pay the mortgage or rent on time? Yes 12/25/2022 In the last 12 months, how many places have you lived? 1 12/25/2022 In the last 12 months, was t here a time when you did not have a steady place to sleep or slept in a correction (including now)? No 12/25/2022 Sex and Gender Information Value Date Recorded Sex Assigned at Not on file Gender Identity Female 07/27/2023 12:45 PM STUDENT COUNSELLOR Sexual Orientation Not on file Last Filed Vital Signs Vital Sign Reading Time Taken Comments Blood Pressure 117/53 12/27/2022 3:57 PM CDT Pulse 91 12/27/2022 3:57 PM CDT Temperature 36.8 C (98.3 F) 12/27/2022 3:57 PM CDT Respiratory Rate 15 12/27/2022 3:44 AM CDT Oxygen Saturation 98% 12/27/2022 3:57 PM CDT Inhaled Oxygen Concentration - - Weight 64.9 kg (143 lb) 06/24/2023 11:14 AM STUDENT COUNSELLOR Height 152.4 cm (5') 02/11/2023 12:09 PM CDT Body Mass Index 27.93 02/11/2023 12:09 PM CDT Plan of Treatment Health Maintenance Due Date Last Done Comments BONE DENSITY TESTING 1940 MEDICARE AWV 12 MONTHS 1940 PNEUMOCOCCAL VACCINE 50+ (1 of 1 - PCV) 02/02/1988 ZOSTER VACCINE (1 of 2) 02/02/1988 Respiratory Syncytial Virus (RSV) Vaccine Pt: or over 60 yrs (1 - 1-dose 75+ series) 2013 COVID-19 VACCINE (1 - 2023-2 5 season) 2024 INFLUENZA VACCINE (#1) 2024 DEPRESSION SCREENING 07/27/2024 DTAP/TDAP/TD VACCINES (2 - T d or Tdap) 12/21/2032 12/21/2022 HEPATITIS B VACCINE Aged Out No longe r eligible based on patient's age to complete this topic HIB VACCINE Aged Out No longer eligi ble based on patient's age to complete this topic HPV VACCINE Aged Out No longer eligi ble based on patient's age to complete this topic MENINGOCOCCAL (Group B) VACC INE SHARED DECISION-MAKING Aged Out No longer eligibl e based on patient's age to complete this topic MENINGOCOCCAL GROUPS A/C/Y/W VACCINE Aged Out No longer eligible b ased on patient's age to complete this topic Medical Devices Implanted Type Area Dividing Machine Operator Device Identifier Shelf Expiration Date Model / Serial / Lot Screw 3.5mm 6mm 44mm 2.5mm Ft Slf-Tap Implanted:Qty: 1 on 12/21/2022 by Robin Machado DO at [facility] Right: Leg [employer] [id number] / / Screw 3.5mm 6mm 75mm Slf-Tap Sm Hex Sckt Implanted:Qty: 2 on 12/21/2022 by Robin Machado DO at [facility] Right: Leg [employer] 204.875 / / Plate 1/3 Tblr [id number] Hl Colr Ss Implanted:Qty: 1 on 12/21/2022 by Robin Machado DO at [facility] Right: Leg [employer] 241.371 / / 3.5 Mm Crtx Screw/Low Prof Hd/ Self Tapping/Strdrv/ 52 Mm Implanted:Qty: 1 on 12/21/2022 by Robin Machado DO at [facility] Right: Leg 06/25/2025 [id number] / / [id number] Nail Im 11.5mm 18cm Trgn Intrtn Implanted:Qty: 1 on 12/25/2022 by Pool Joe MD at [facility] [employer] 01/22/2032 [id number] / / [id number] Screw 5mm 30mm Lopro Intnl Hex Fem Trgn Implanted:Qty: 1 on 12/25/2022 by Pool Joe MD at [facility] [employer] 02/04/2032 [id number] / / [id number] Kit Screw 95mm 11.5mm 7mm Intrtn Troch Implanted:Qty: 1 on 12/25/2022 by Pool Joe MD at [facility] [employer] 07/14/2032 [id number] / / [id number] Explanted Type Area Dividing Machine Operator Device Identifier Shelf Expiration Date Model / Serial / Lot Screw 3.5mm 6mm 50mm Slf-Tap Sm Hex Sckt Explanted:Qty: 1 on 12/21/2022 by Robin Machado DO at [facility] Right: Leg [employer] 204.850 / / Screw 3.5mm 6mm 42mm Ft Cortx Slf-Tap Sm Explanted:Qty: 1 on 12/21/2022 at [facility] Right: Leg [employer] 204.842 / / Advance Directives * Full Code (Latest Code Status on File) Date Activated Date Inactivated Comments 12/25/2022 2:55 AM 12/27/2022 9:57 PM * Full Code Date Activated Date Inactivated Comments 12/21/2022 2:48 AM 12/23/2022 7:53 PM Care Teams Door To Door Selling Agent Relationship Specialty Start Date End Date Eduardo Cheney MD [address] [place] [address] PCP - General Internal Medicine 12/21/22
--- OUTSIDE RECORDS SUMMARY | 2024-11-01 07:34 | XMS_ITS | Clinical Summary ---
Author Organization [facility] Address [address] [place] [address] Care Team Providers Care Improvement Engineer Name Role Phone Eduardo Cheney MD Primary Care Provider [phone] Allergies No known active allergies Medications metoprolol succinate ER 25 MG 24 hr tablet Take 12.5 mg by mouth every morning. Active aspirin EC (ASPIRIN EC) 81 MG tablet Take 81 mg by mouth every morning. Active lisinopril 10 MG tablet Take 10 mg by mouth every morning. Active Multiple Vitamins-Mineral s (MULTIVITAMIN WOMEN) Tab Take 1 tablet by mouth daily. Active Misc Natural Products (CRANBERRY-C OR) Take 1 tablet by mouth after lunch. 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 Family History Medical History Relation Comments Heart Disease Father Heart Disease Mother Relation Status Comments Father Mother Social History Tobacco Use Types Packs/Day Years Used Date Smoking Tobacco: Never Smokeless Tobacco: Never Alcohol Use Standard Drinks/Week Comments Never 0 (1 standard drink = 0.6 oz pur e alcohol) AUDIT-C Answer Date Recorded Frequency of Alcohol Consumption Never 09/08/2019 Average Number of Drinks Not on file 020 Frequency of Binge Drinking Not on file 08/27 Comments Unknown Sex and Gender Information Value Date Recorded Sex Assigned at Not on file Legal Sex Female 10:24 PM CDT Gender Identity Not on file Sexual Orientation Not on file Occupation Industry Job Start Date Job End Date Not on file Not on file Not on file Not on file Last Filed Vital Signs Vital Sign Reading Time Taken Comments Blood Pressure 124/82 09/08/2019 1:22 PM HEALTH PROGRAM MANAGER Pulse 64 09/08/2019 1:22 PM HEALTH PROGRAM MANAGER EKG Temperature 36.8 C (98.2 F) 11/19/2018 4:30 PM CDT Respiratory Rate 16 09/08/2019 1:22 PM HEALTH PROGRAM MANAGER Oxygen Saturation 98% 11/19/2018 4:30 PM CDT Inhaled Oxygen Concentration - - Weight 65 kg (143 lb 6.4 oz) 09/08/2019 1:22 PM HEALTH PROGRAM MANAGER Height 152.4 cm (5') 09/08/2019 1:22 PM HEALTH PROGRAM MANAGER Body Mass Index 28.01 09/08/2019 1:22 PM HEALTH PROGRAM MANAGER Plan of Treatment Health Maintenance Due Date Last Done Comments Zoster Vaccines (1 of 2) 02/02/1988 Annual Medicare Wellness Visit 2003 Pneumococcal Vaccine: 65+ Ye ars (1 of 1 - PCV) 2003 RSV Immunization or 60+ Years (1 - 1-dose 75+ series) 2013 DTaP, Tdap and Td Vaccines ( 2 - Tdap) 10/23/2014 10/23/2004 COVID-19 Vaccine ( - 2023-2 5 season) 2024 Meningococcal B Vaccine Aged Out No l onger eligible based on patient's age to complete this topic Meningococcal Vaccine Aged Out No jackie matteo eligible based on patient's age to complete this topic RSV Immunizations Under 20 Months Aged Out No longer eligible based on patient's age to complete this topic Insurance [place]IC[place] [id number] [employer] Advance Directives * Full Code (Latest Code Status on File) Date Activated Date Inactivated Comments 11/19/2018 4:25 AM 11/19/2018 8:56 PM Care Teams Improvement Engineer Relationship Specialty Start Date End Date Eduardo Cheney MD [address] [place] [id number] PCP - General INTERNAL MEDICINE 12/07/18
--- OUTSIDE RECORDS SUMMARY | 2024-11-01 07:34 | XMS_ITS | Encounter Summary ---
Author Organization [facility] Address [address] [place] [address] Care Team Providers Care Spinner Continuous Name Role Phone None, Provider Primary Care Provider [facility] Eduardo Cheney MD Primary Care Provider [phone] Encounter Details Date Type Department Care Team (Late st Contact Info) Description 10/10/2017 Abstract [facility] CONVERSION [address] [place] [address] , Generic Conversion, Social History Tobacco Use Types Packs/Day Years Used Date Smoking Tobacco: Never Comments Unknown Sex and Gender Information Value Date Recorded Sex Assigned at Not on file Legal Sex Female 10:24 PM CDT Gender Identity Not on file Sexual Orientation Not on file documented as of this encounter Plan of Treatment Not on file documented as of this encounter Visit Diagnoses Not on filedocumented in this encounter Care Teams Spinner Continuous Relationship Specialty Start Date End Date None, Provider, PCP - General 11/19/18 12/06/18 Eduardo Cheney MD [address] [place] [address] PCP - General INTERNAL MEDICINE 12/07/18 documented as of this encounter
[2024-11-01 08:35] LABS: Basophils Absolute Auto 0.07 K/mm3 (0.00-0.10); Basophils Percent Auto 1.2 % (0.0-1.0); Eosinophils Percent Auto 3.5 % (1.0-6.0); Hematocrit 40.8 % (35.0-42.0); Immature Granulocyte Absolute 0.01 K/mm3 (0.00-0.00); Immature Granulocyte Percent A 0.2 % (0.0-0.0); Lymphocytes Absolute Auto 1.79 K/mm3 (1.10-4.50); Lymphocytes Percent Auto 31.3 % (18.0-42.0); Mean Corpuscular HGB Conc 31.9 g/dL (32-36); Mean Corpuscular Hemoglobin 30.1 pg (27.0-31.0); Mean Corpuscular Volume 94.4 fL (78.0-102.0); Mean Platelet Volume 10.9 fl (9.2-11.8); Monocytes Percent Auto 10.5 % (2.0-11.0); Neutrophils Absolute Auto 3.05 K/mm3 (1.70-7.20); Neutrophils Percent Auto 53.3 % (50.0-70.0); Platelet Count Result 204 K/mm3 (150-420); Red Blood Count 4.32 M/mm3 (4.20-5.40); Red Cell Distribution Width 13.8 % (11.6-14.4); White Blood Count 5.7 K/mm3 (4.8-10.8)
[2024-11-01 09:10] LABS: Alanine Aminotransferase 32 U/L (14-59); Albumin Level 3.5 g/dL (3.4-5.0); Alkaline Phosphatase 95 U/L (46-116); Anion Gap 8 mmol/L (4-12); Aspartate Amino Transferase 19 U/L (15-37); Bilirubin,Total 0.7 mg/dL (0.00-1.00); Blood Urea Nitrogen 20 mg/dL (7-18); Calcium 9.1 mg/dL (8.5-10.1); Carbon Dioxide 29 mmol/L (21-32); Chloride 107 mmol/L (98-108); Cholesterol 216 mg/dL (0-200); Estimated Glomerular Filt Rate 57; Free T4 Free Thyroxine 1.01 ng/dL (0.76-1.46); Glucose 79 mg/dL (70-99); HDL Direct 70 mg/dL (40-60); LDL Cholesterol Calculated 130 mg/dL (<130); Magnesium 2.1 mg/dL (1.8-2.4); NT Pro B Type Natriuretic Pept 322 pg/mL (0-450); Osmolality Calculated 299 mOsm/kg (285-295); Potassium 4.2 mmol/L (3.5-5.1); Sodium 144 mmol/L (136-145); Thyroid Stimulating Hormone 3.18 uIU/mL (0.36-3.74); Total Protein 6.7 g/dL (6.4-8.2); Triglycerides 81 mg/dL (0-150)
[2024-11-01 09:25] LABS: Free T3 2.91 pg/mL (2.18-3.98)
[2024-11-01 10:42] LABS: Add Urine Microscopic? YES; Appearance Urine Clear (Clear); Bilirubin Urine Negative (Negative); Blood Urine Trace-intact (Negative); Color Urine Light Yellow (Yellow); Glucose Urine UA Negative (Negative); Ketones Urine Negative (Negative); Leukocyte Esterase Ur 2+ (Negative); Nitrate Urine Negative (Negative); Protein Urine Negative (Negative); Urobilinogen Urine 0.2 mg/dL (0.2-1.0)
[2024-11-01 11:23] LABS: Bacteria Urine 1+ /hpf; RBC Urine 0-2 /hpf (0-2); Squamous Epithelial Cell Urine Few /hpf (Few); WBC Urine 21-30 /hpf (0-3)
== END 2024-11-01 07:30 | disposition home or self-care (01) ==
LOC: CHSLAB 07:32
PROVIDERS: PCP Internal Medicine; Visit Provider Internal Medicine
DX: I48.0 Paroxysmal atrial fibrillation (principal); R30.0 Dysuria; R94.6 Abnormal results of thyroid function studies; E78.00 Pure hypercholesterolemia, unspecified; I49.3 Ventricular premature depolarization; R06.02 Shortness of breath
CPT/HCPCS: 36415; 80053; 80061; 81001; 83735; 83880; 84439; 84443; 84481; 85025; 87086; 87186

== ENCOUNTER 2024-11-21 10:30 | Outpatient (CLI) | payer MEDICARE, SELFPAY ==
[2024-11-21 11:25] LABS: Add Urine Microscopic? NO; Appearance Urine Clear (Clear); Bilirubin Urine Negative (Negative); Blood Urine Trace-intact (Negative); Color Urine Yellow (Yellow); Glucose Urine UA Negative (Negative); Ketones Urine Negative (Negative); Leukocyte Esterase Ur Negative (Negative); Nitrate Urine Negative (Negative); Protein Urine Negative (Negative); Specific Grav Ur 1.025 (1.010-1.020); Urobilinogen Urine 0.2 mg/dL (0.2-1.0); pH Urine 5.5 (5.0-8.0)
--- OUTSIDE RECORDS SUMMARY | 2024-11-21 12:13 | XMS_ITS | Encounter Summary ---
Author Organization [facility] Address [address] [place] [address] Care Team Providers Care Horse Stud Manager Name Role Phone None, Provider Primary Care Provider [facility] Eduardo Cheney MD Primary Care Provider [phone] Encounter Details Date Type Department Care Team (Late st Contact Info) Description 10/10/2017 Abstract [facility] CONVERSION [address] [place] [address] , Generic Conversion, Social History Tobacco Use [...] on filedocumented in this encounter Care Teams Horse Stud Manager Relationship Specialty Start Date End Date None, Provider, PCP - General 11/19/18 12/06/18 Eduardo Cheney MD [address] [place] [address] PCP - General INTERNAL MEDICINE 12/07/18 documented as of this encounter
--- OUTSIDE RECORDS SUMMARY | 2024-11-21 12:13 | XMS_ITS | Clinical Summary ---
Author Organization [facility] [employer] Address [address] [place] [address] Care Team Providers Care Conductor Sleeping Car Name Role Phone Eduardo Cheney MD Primary Care Provider [phone] Source Comments [facility] [employer],non-owned Affiliates and Associated Physician Practices is amultiple site organization consisting of ambulatory clinics and hospital sitesin [place], [place], [place] and [place]. This disclosure is being madepursuant to the Care Everywhere program and may not contain all information available regarding this patient. Last updated 18.[facility] [employer] Allergies No known active allergies Medications * Be aware that medications may not be up to date on this document. Alwaysverify current medications with the patient. Multiple Vitamins-Transportation Driver als (Multivitamin Women) TABS Take 1 tablet by mouth once daily Active acetaminophen (Tylenol) 500 MG tablet Take 1 (one) tablet by mouth every 4 hours as needed Maximum allowable Acetaminophen amount = 4 Grams (4000 mg) / 24 hours. 3 Active ondansetron, disintegrating , (Zofran ODT) 4 MG tablet Take 1 (one) tablet by mouth every 6 hours as needed for Nausea/Vomiting Allow tablet to dissolve on the tongue 3 Active losartan (Cozaar) 50 MG tablet Take 1 (one) tablet by mouth once daily Hold for SBP<110 or DBP<70 3 Active metoprolol succinate XL 24hr (Toprol XL) 25 MG tablet Take 0.5 (one-half) tablet by mouth once daily Hold for SBP<110 or DBP<70 3 Active lidocaine (Lidoderm) 5 % patch Apply 2 (two) patches to skin every 24 hours Apply patch to most painful area and remove after 12 hours. May reapply a new patch 12 hours later. 3 Active polyethylene glycol 3350 (Miralax) 17 g packet Take 17 (seventeen) g by mouth 2 times daily 3 Active senna (Senokot) 8.6 MG tablet Take 1 (one) tablet by mouth 2 times daily 3 Active ferrous sulfate 325 (65 FE) MG tablet Take 1 (one) tablet by mouth daily with breakfast 3 Active Active Problems Problem Noted Date Diagnosed Date Hypoxia 12/26/2022 Closed intertrochanteric fra cture of hip, right, initial encounter 12/25/2022 Impaired mobility and ADLs 12/22/2022 Blood loss anemia 12/22/2022 Fall, initial encounter 12/21/2022 Closed displaced fracture of lateral condyle of right femur, initial encounter 12/21/2022 Immunizations Immunization Administration Dates Next Due TDAP (7yrs+) 12/21/2022 [...] and heating? Not hard at all 12/25/2022 [facility] [place] [place] of Occupat ional Health - Occupational Stress [...] place to sleep or slept in a senior living (including now)? No 12/25/2022 Comments No Sex and Gender Information Value Date Recorded Sex Assigned at Not on file Legal Sex Female 7:56 PM CDT Gender Identity Female 07/27/2023 12:45 PM BETTING CLERKS Sexual Orientation Not on file Last Filed [...] 64.9 kg (143 lb) 06/24/2023 11:14 AM BETTING CLERKS Height 152.4 cm (5') 02/11/2023 12:09 PM [...] - 1-dose 75+ series) 2013 COVID-19 VACCINE (2023-2 5 season) 2024 DEPRESSION SCREENING 07/27/2024 INFLUENZA VACCINE (Season Ended) 2025 DTAP/TDAP/TD VACCINES (2 - T d or [...] this topic Medical Devices Implanted Type Area Pairing Machine Operator Device Identifier Shelf Expiration Date Model / Serial / Lot Screw 3.5mm 6mm 44mm 2.5mm Ft Slf-Tap Implanted:Qty: 1 on 12/21/2022 by Robin Machado DO at [facility] Right: Leg [employer] 204.844 / / Screw 3.5mm 6mm 75mm Slf-Tap Sm Hex Sckt Implanted:Qty: 2 on 12/21/2022 by Robin Machado DO at [facility] Right: Leg [employer] 204.875 / / Plate 1/3 Tblr [id number] Hl Colr Ss Implanted:Qty: 1 on 12/21/2022 by Robin Machado DO at [facility] Right: Leg [employer] 241.371 / / 3.5 Mm Crtx Screw/Low Prof Hd/ Self Tapping/Strdrv/ 52 Mm Implanted:Qty: 1 on 12/21/2022 by Robin Machado DO at [facility] Right: Leg 06/25/2025 02.206.252S / / [id number] Nail Im 11.5mm 18cm Trgn Intrtn Implanted:Qty: 1 on 12/25/2022 by Pool Joe MD at [facility] [employer] 01/22/2032 [id number] / / [id number] Screw 5mm 30mm Lopro Intnl Hex Fem Trgn Implanted:Qty: 1 on 12/25/2022 by Pool Joe MD at [facility] [employer] 02/04/2032 [id number] / / [id number] Kit Screw 95mm 11.5mm 7mm Intrtn Troch Implanted:Qty: 1 on 12/25/2022 by Pool Joe MD at [facility] [employer] 07/14/2032 [id number] / / [id number] Explanted Type Area Pairing Machine Operator Device Identifier Shelf Expiration Date Model / Serial / Lot Screw 3.5mm 6mm 50mm Slf-Tap Sm Hex Sckt Explanted:Qty: 1 on 12/21/2022 by Robin Machado DO at [facility] Right: Leg [employer] 204.850 / / Screw 3.5mm 6mm 42mm Ft Cortx Slf-Tap Sm Explanted:Qty: 1 on 12/21/2022 at [facility] Right: Leg [employer] [facility] 204.842 / / Insurance MEDICARE MEDICARE SUPPLEMENT PAYOR GENERIC Advance Directives * Full Code (Latest Code Status on File) Date Activated Date Inactivated Comments 12/25/2022 2:55 AM 12/27/2022 9:57 PM * Full Code Date Activated Date Inactivated Comments 12/21/2022 2:48 AM 12/23/2022 7:53 PM Care Teams Conductor Sleeping Car Relationship Specialty Start Date End Date Eduardo Cheney MD [address] [place] [address] PCP - General Internal Medicine 12/21/22
--- OUTSIDE RECORDS SUMMARY | 2024-11-21 12:13 | XMS_ITS | Clinical Summary ---
Author Organization [facility] Address [address] [place] [address] Care Team Providers Care Network Control Supervisor Name Role Phone Eduardo Cheney MD Primary Care Provider [phone] Allergies No known active allergies Medications metoprolol [...] Comments Blood Pressure 124/82 09/08/2019 1:22 PM HOGSHEAD FILLER Pulse 64 09/08/2019 1:22 PM HOGSHEAD FILLER EKG Temperature 36.8 C (98.2 F) 11/19/2018 4:30 PM CDT Respiratory Rate 16 09/08/2019 1:22 PM HOGSHEAD FILLER Oxygen Saturation 98% 11/19/2018 4:30 PM CDT Inhaled Oxygen Concentration - - Weight 65 kg (143 lb 6.4 oz) 09/08/2019 1:22 PM HOGSHEAD FILLER Height 152.4 cm (5') 09/08/2019 1:22 PM HOGSHEAD FILLER Body Mass Index 28.01 09/08/2019 1:22 PM HOGSHEAD FILLER Plan of Treatment Health Maintenance Due Date Last Done Comments Pneumococcal Vaccine: 50+ Ye ars (1 of 1 - PCV) 02/02/1988 Zoster Vaccines (1 of 2) 02/02/1988 Annual Medicare Wellness Visit 2003 RSV Immunization or 60+ Years (1 [...] MEDIC[place] [employer] [id number] [employer] Advance Directives * Full Code (Latest Code Status on File) Date Activated Date Inactivated Comments 11/19/2018 4:25 AM 11/19/2018 8:56 PM Care Teams Network Control Supervisor Relationship Specialty Start Date End Date Eduardo Cheney MD [address] [place] [phone] PCP - General INTERNAL MEDICINE 12/07/18
== END 2024-11-21 10:31 | disposition home or self-care (01) ==
LOC: CHSLAB 10:32
PROVIDERS: PCP Internal Medicine; Visit Provider Internal Medicine
DX: N39.0 Urinary tract infection, site not specified (principal)
CPT/HCPCS: 81003; 87086

== ENCOUNTER 2025-05-01 08:58 | Outpatient (CLI) | payer MEDICARE, SELFPAY ==
--- OUTSIDE RECORDS SUMMARY | 2010-04-10 05:30 | XMS_ITS | Continuity of Care Document ---
Author Organization [facility] Address [address] [place] [address] Phone Care Team Providers Care Food Concession Manager Name Role Phone Poncho Vallejo Unavailable Unavailable Procedures Procedure Date Office/outpatient Visit, Est Post-op Follow-up Visit Post-op Follow-up Visit Post-op Follow-up Visit Remove Cataract, Insert Lens PreOp Assessment Performed Presbyopia Correcting IOL Office/outpatient Visit, Est IOLMaster-Professional Eye Exam Established Pt No Script Post-op Follow-up Visit Post-op Follow-up Visit Remove Cataract, Insert Lens PreOp Assessment Performed Presbyopia Correcting IOL Eye Exam, New Patient IOLMaster Script Printed/Phoned Pt Requ Or Pharm N ot Availab Advance Directives Directive Yes / No Effective Date File Name No Information Encounters Encounter Description Practice Location Reason(s) For Visit Diagnoses Date Provider Providers Copied on Encounter Office/outpat ient Visit, Est [facility], [address], [place], [place], [id number], [place] tel:[phone] [facility] No Information 0 Genevieve Isaac. [address] , [address], [place], [address], [place]. tel:[phone] [facility] Eye [facility], [address], [place], [place], [id number], [place] tel:[phone] [facility] No Information 6- 0 Krishnasamy Gigi. [address] [facility] [address], [place], [place], [facility], [place]. tel:[phone] [facility] Eye [facility], [id number] [place] [address] [address], [place], [place], [id number], [place] tel:[phone] [facility] No Information 6- 0 Krishnasamy Gigi. [address] [facility], [place], [place], [facility], [place]. tel:[phone] [facility] Eye [facility], [id number] [place] [address] [address], [place], [place], [id number], [place] tel:[phone] [facility] No Information 9- 0 Krishnasamy Gigi. [address] [facility], [place], [address], [place]. tel:[phone] [facility], [address], [place], [place], [id number], [place] tel:[phone] [facility] No Information 8- 0 Krishnasamy Gigi. [address] [facility], [place], [address], [place]. tel:[phone] Office/outpat ient Visit, Est [facility], [address], [place], [place], [id number], [place] tel:[phone] [facility] No Information b- 0-201 0 Krishnasamy Gigi. [address] [facility] [address], [place], [place], [facility], [place]. tel:[phone] Referring Provider: Montse Menendez, [address] [place], [address]. tel:[phone] [facility] Eye [facility], [address], [place], [place], [id number], [place] tel:[phone] [facility] No Information Oct-2 0-200 9 Krishnasamy Gigi. [address], [place], [facility], [place]. tel:[phone] [facility] Eye [facility], [address] [place] [address] [address], [place], [place], [id number], [place] tel:[phone] [facility] No Information Sep-0 8-200 9 Krishnasamy Gigi. [address] [facility] [address], [place], [facility], [place]. tel:[phone] Referring Provider: [place], [address]. tel:[phone] [facility] Eye [facility], [address], [place], [place], [id number], [place] tel:[phone] [facility] No Information Sep-0 1-200 9 Krishnasamy Gigi. [address] [facility] [address], [place], [facility], [place]. tel:[phone] [facility] Eye [facility], [address], [place], [place], [id number], [place] tel:[phone] [facility] No Information Aug-3 1-200 9 Krishnasamy Gigi. [address] [facility] [address], [place], [facility], [place]. tel:[phone] Referring Provider: [place], [address]. tel:[phone] [facility] Eye [facility], [address], [place], [place], [id number], [place] tel:[phone] [facility] No Information 200 9 Aster Yu. [address] [facility] [address], [place], [address], [place]. tel:[phone] Referring Provider: Laura Pang, [place], [address]. tel:[phone] Family History Family Member Type Diagnosis Age At Onset No Information Payers Payer name Insurance type Covered alliance party ID Authoriza tion(s) Medicare [facility] [id number] [place] [id number] Social History Type Description Quantity Date Captured Comments Sex Female Smoking Status No Information Chief Complaint And Reason For Visit No Information Reason For Referral Reason For Referral No Information History Of Present Illness Encounter Date Complaint History Of Prese nt Illness No Information Functional Status Date Functional Assessmen t No Information Instructions Date Instruction Additional Infor mation No Information Assessments Type Assessment Date No Information Patient Care Teams Name Effective Dates (start - stop) Status Members No Information
[2025-05-01 09:25] LABS: Hematocrit 40.5 % (35.0-42.0); Hemoglobin 13.5 g/dL (11.7-13.8); Immature Granulocyte Percent A 0.2 % (0.0-0.0); Lymphocytes Absolute Auto 1.33 K/mm3 (1.10-4.50); Mean Corpuscular HGB Conc 33.3 g/dL (32-36); Mean Corpuscular Hemoglobin 31.2 pg (27.0-31.0); Mean Corpuscular Volume 93.5 fL (78.0-102.0); Nucleated Red Blood Cells Absolute Auto 0.00 K/mm3 (0.00-0.00); Nucleated Red Blood Cells Perc 0.0 % (0-0.0); Platelet Count Result 195 K/mm3 (150-420); Red Blood Count 4.33 M/mm3 (4.20-5.40); White Blood Count 4.7 K/mm3 (4.8-10.8)
[2025-05-01 09:26] LABS: Add Urine Microscopic? YES; Appearance Urine Clear (Clear); Glucose Urine UA Negative (Negative); Leukocyte Esterase Ur Negative (Negative); Nitrate Urine Negative (Negative); Specific Grav Ur 1.020 (1.010-1.020)
--- OUTSIDE RECORDS SUMMARY | 2025-05-01 09:38 | XMS_ITS | Clinical Summary ---
Author Organization [facility] Address [address] [place] [address] Care Team Providers Care Chemical Cell Changer Name Role Phone Eduardo Cheney MD Primary Care Provider [phone] Source Comments [facility],non-owned Affiliates and Associated Physician Practices is amultiple site organization consisting of ambulatory clinics and hospital sitesin [place], [place], [place] and [place]. This disclosure is being madepursuant to the Care Everywhere program and may not contain all information available regarding this patient. Last updated 18.[facility] Allergies No known active allergies Medications * Be aware that medications may not be up to date on this document. Alwaysverify current medications with the patient. Multiple Vitamins-[place] als (Multivitamin Women) TABS Take 1 tablet [...] and heating? Not hard at all 12/25/2022 [facility] [place] of Occupat ional Health - Occupational Stress [...] place to sleep or slept in a longterm (including now)? No 12/25/2022 Comments No Sex and Gender Information Value Date Recorded Sex Assigned at Not on file Legal Sex Female 7:56 PM CDT Gender Identity Female 07/27/2023 12:45 PM HUMAN RESOURCES EXECUTIVE ASSISTANT Sexual Orientation Not on file Last Filed [...] 64.9 kg (143 lb) 06/24/2023 11:14 AM HUMAN RESOURCES EXECUTIVE ASSISTANT Height 152.4 cm (5') 02/11/2023 12:09 PM [...] yrs (1 - 1-dose 75+ series) 2013 DEPRESSION SCREENING 07/27/2024 COVID-19 VACCINE (1 - 2023-2 5 season) 2025 INFLUENZA VACCINE (#1) 2025 DTAP/TDAP/TD VACCINES (2 - T d [...] this topic Medical Devices Implanted Type Area Can Striper Device Identifier Shelf Expiration Date Model / Serial / Lot Screw 3.5mm 6mm 44mm 2.5mm Ft Slf-Tap Implanted:Qty: 1 on 12/21/2022 by Robin Machado DO at [facility] Right: Leg [employer] 204.844 / / Screw 3.5mm 6mm 75mm Slf-Tap Sm Hex Sckt Implanted:Qty: 2 on 12/21/2022 by Robin Machado DO at [facility] Right: Leg [employer] 204.875 / / Plate 1/3 Tblr [id number] 7 Hl Colr Ss Implanted:Qty: 1 on 12/21/2022 by Robin Machado DO at [facility] Right: Leg [employer] 241.371 / / 3.5 Mm Crtx Screw/Low Prof Hd/ Self Tapping/Strdrv/ 52 Mm Implanted:Qty: 1 on 12/21/2022 by Robin Machado DO at [facility] Right: Leg 06/25/2025 02.206.252S / / [id number] Nail Im 11.5mm 18cm Trgn Intrtn Implanted:Qty: 1 on 12/25/2022 by Pool Joe MD at [facility] [employer] 01/22/2032 [id number] / / [id number] Screw 5mm 30mm Lopro Intnl Hex Fem Trgn Implanted:Qty: 1 on 12/25/2022 by Pool Joe MD at [facility] [employer] 02/04/2032 [id number] / / [id number] Kit Screw 95mm 11.5mm 7mm Intrtn Troch Implanted:Qty: 1 on 12/25/2022 by Pool Joe MD at [facility] [employer] 07/14/2032 [id number] / / [id number] Explanted Type Area Can Striper Device Identifier Shelf Expiration Date Model / Serial / Lot Screw 3.5mm 6mm 50mm Slf-Tap Sm Hex Sckt Explanted:Qty: 1 on 12/21/2022 by Robin Machado DO at [facility] Right: Leg [employer] 204.850 / / Screw 3.5mm 6mm 42mm Ft Cortx Slf-Tap Sm Explanted:Qty: 1 on 12/21/[address] [facility] Right: Leg Synthes [facility] 204.842 / / Insurance MEDICARE MEDICARE SUPPLEMENT PAYOR GENERIC Advance Directives * Full Code (Latest Code Status on File) Date Activated Date Inactivated Comments 12/25/2022 2:55 AM 12/27/2022 9:57 PM * Full Code Date Activated Date Inactivated Comments 12/21/2022 2:48 AM 12/23/2022 7:53 PM Care Teams Chemical Cell Changer Relationship Specialty Start Date End Date Eduardo Cheney MD [address] [place] [address] PCP - General Internal Medicine 12/21/22
[2025-05-01 10:08] LABS: Alanine Aminotransferase 19 U/L (6-35); Albumin Level 4.1 g/dL (3.5-5.1); Alkaline Phosphatase 74 U/L (38-126); Anion Gap 7 mmol/L (4-12); Aspartate Amino Transferase 33 U/L (14-36); Bilirubin,Total 0.9 mg/dL (0.2-1.3); Blood Urea Nitrogen 21 mg/dL (7-17); Calcium 9.8 mg/dL (8.4-10.2); Carbon Dioxide 27 mmol/L (22-30); Chloride 108 mmol/L (98-107); Cholesterol 217 mg/dL (0-200); Creatine Kinase 73 U/L (30-135); Estimated Glomerular Filt Rate 57; Glucose 83 mg/dL (65-110); HDL Direct 69 mg/dL; Osmolality Calculated 296 mOsm/kg (285-295); Potassium 4.3 mmol/L (3.4-5.0); Sodium 142 mmol/L (137-145); Total Protein 7.7 g/dL (6.3-8.2); Triglycerides 88 mg/dL (<150)
[2025-05-01 10:26] LABS: Free T3 3.90 pg/mL (2.18-3.98); Free T4 Free Thyroxine 1.03 ng/dL (0.78-2.19)
[2025-05-01 10:39] LABS: Thyroid Stimulating Hormone 3.330 uIU/mL (0.465-4.680)
== END 2025-05-01 08:59 | disposition home or self-care (01) ==
PROVIDERS: PCP Internal Medicine; Visit Provider Internal Medicine
DX: R94.6 Abnormal results of thyroid function studies (principal); I10 Essential (primary) hypertension; R82.81 Pyuria; M81.0 Age-related osteoporosis without current pathological fracture; I48.0 Paroxysmal atrial fibrillation; E78.00 Pure hypercholesterolemia, unspecified
CPT/HCPCS: 36415; 80053; 80061; 81001; 82306; 82550; 84439; 84443; 84481; 85025; 87086

== ENCOUNTER 2025-07-17 13:41 | Outpatient (CLI) | payer MEDICARE, SELFPAY ==
--- NOTE | 2025-07-17 | CY_PTH ---
PATIENT: Lucia Salas LOC: [facility] U#:[id number] AGE/SX: 85/F ROOM: RE07/17/[address]: Eduardo Cheney MD : 1940 BED: DIS: 07/17/2025 SPEC #: [id number] RECD: 07/17/25 13:50 STATUS: LEANDRA REQ #: [id number] [place]: 07/17/25 00:[address]: Eduardo Cheney DEPT: [facility] Cytology RECD BY: Hilda Richards MT,([facility]) Tissues: A - Thin Prep Non-Gyne Procedures: Thin Prep Non-head teller
[2025-07-17 13:55] LABS: Add Urine Microscopic? YES; Appearance Urine Clear (Clear); Glucose Urine UA Negative (Negative); Leukocyte Esterase Ur Trace (Negative); Nitrate Urine Negative (Negative); Specific Grav Ur 1.025 (1.010-1.020)
--- OUTSIDE RECORDS SUMMARY | 2025-07-17 15:28 | XMS_ITS | Clinical Summary ---
Author Organization [facility] Address [address] [place] [address] Care Team Providers Care Raw Scales Operator Name Role Phone Eduardo Cheney MD Primary Care Provider [phone] Source Comments [facility],non-owned Affiliates and Associated Physician Practices is amultiple site organization consisting of ambulatory clinics and hospital sitesin [place], [place], [place] and [place]. This disclosure is being madepursuant to the Care Everywhere program and may not contain all information available regarding this patient. Last updated 18.[facility] Allergies No known active allergies Medications * Be aware that medications may not be up to date on this document. Alwaysverify current medications with the patient. Multiple Vitamins-[place] als (Multivitamin Women) TABS Take 1 tablet [...] and heating? 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 Sexual Orientation Not on file Last Filed [...] 64.9 kg (143 lb) 06/24/2023 11:14 AM ADVERTISING PROJECT MANAGER Height 152.4 cm (5') 02/11/2023 12:09 PM [...] DEPRESSION SCREENING 07/27/2024 COVID-19 VACCINE (1 - 2024-2 6 season) 2025 INFLUENZA VACCINE (#1) 2025 DTAP/TDAP/TD [...] this topic Medical Devices Implanted Type Area Director Of Litigation Device Identifier Shelf Expiration Date Model / Serial / Lot Screw 3.5mm 6mm 44mm 2.5mm Ft Slf-Tap Implanted:Qty: 1 on 12/21/2022 by Robin Machado DO at [facility] Right: Leg [employer] 204.844 / / Screw 3.5mm 6mm 75mm Slf-Tap Sm Hex Sckt Implanted:Qty: 2 on 12/21/2022 by Robin Machado DO at [facility] Right: Leg [employer] 204.875 / / Plate 1/3 Tblr [id number] 7 Hl Colr Ss Implanted:Qty: 1 on 12/21/2022 by Robin Machado DO at [facility] Right: Leg [employer] 241.371 / / 3.5 Mm Crtx Screw/Low Prof Hd/ Self Tapping/Strdrv/ 52 Mm Implanted:Qty: 1 on 12/21/2022 by Robin Machado DO at [facility] Right: Leg 06/25/2025 02.206.252S / / [id number] Nail Im 11.5mm 18cm Trgn Intrtn Implanted:Qty: 1 on 12/25/2022 by Pool Joe MD at [facility] [employer] 01/22/2032 [id number] / / [id number] Screw 5mm 30mm Lopro Intnl Hex Fem Trgn Implanted:Qty: 1 on 12/25/2022 by Pool Joe MD at [facility] [employer] 02/04/2032 [id number] / / [id number] Kit Screw 95mm 11.5mm 7mm Intrtn Troch Implanted:Qty: 1 on 12/25/2022 by Pool Joe MD at [facility] [employer] 07/14/2032 [id number] / / [id number] Explanted Type Area Director Of Litigation Device Identifier Shelf Expiration Date Model / Serial / Lot Screw 3.5mm 6mm 50mm Slf-Tap Sm Hex Sckt Explanted:Qty: 1 on 12/21/2022 by Robin Machado DO at [facility] Right: Leg [employer] 204.850 / / Screw 3.5mm 6mm 42mm Ft Cortx Slf-Tap Sm Explanted:Qty: 1 on 12/21/2022 at [facility] Right: Leg Synthes [facility] 204.842 / / Insurance MEDICARE MEDICARE SUPPLEMENT PAYOR GENERIC Advance Directives * Full Code (Latest Code Status on File) Date Activated Date Inactivated Comments 12/25/2022 2:55 AM 12/27/2022 9:57 PM * Full Code Date Activated Date Inactivated Comments 12/21/2022 2:48 AM 12/23/2022 7:53 PM Care Teams Raw Scales Operator Relationship Specialty Start Date End Date Eduardo Cheney MD [address] [place] [address] PCP - General Internal Medicine 12/21/22
--- OUTSIDE RECORDS SUMMARY | 2025-07-17 15:28 | XMS_ITS | Clinical Summary ---
Author Organization [facility] Address [address] [place] [address] Care Team Providers Care Drier Attendant Name Role Phone Eduardo Cheney MD Primary Care Provider [phone] Allergies No known active allergies Medications metoprolol [...] Comments Blood Pressure 124/82 09/08/2019 1:22 PM INFORMATION SECURITY DIRECTOR Pulse 64 09/08/2019 1:22 PM INFORMATION SECURITY DIRECTOR EKG Temperature 36.8 C (98.2 F) 11/19/2018 4:30 PM CDT Respiratory Rate 16 09/08/2019 1:22 PM INFORMATION SECURITY DIRECTOR Oxygen Saturation 98% 11/19/2018 4:30 PM CDT Inhaled Oxygen Concentration - - Weight 65 kg (143 lb 6.4 oz) 09/08/2019 1:22 PM INFORMATION SECURITY DIRECTOR Height 152.4 cm (5') 09/08/2019 1:22 PM INFORMATION SECURITY DIRECTOR Body Mass Index 28.01 09/08/2019 1:22 PM INFORMATION SECURITY DIRECTOR Plan of Treatment Health Maintenance Due Date Last Done Comments Pneumococcal Vaccine: 50+ Ye ars (1 of 1 - PCV) 02/02/1988 Zoster Vaccines (1 of 2) 02/02/1988 Annual Medicare Wellness Visit 2003 RSV Immunization or 60+ Years (1 - 1-dose 75+ series) 2013 DTaP, Tdap and Td Vaccines ( 2 - Tdap) 10/23/2014 10/23/2004 COVID-19 Vaccine (2024-2 6 season) 2025 Influenza Adult (#1) 2025 Hepatitis A Vaccines Aged Out No long er eligible based on patient's age to complete this topic Meningococcal B Vaccine Aged Out No l onger eligible based on patient's age to complete this topic Meningococcal Vaccine Aged Out No jackie matteo eligible based on patient's age to complete this topic RSV Immunizations Under 20 Months Aged Out No longer eligible based on patient's age to complete this topic Insurance MEDICARE BANKERS LIFE [employer] CASUALTY MEDICARE BANKERS LIFE [employer] CASUALTY Advance Directives * Full Code (Latest Code Status on File) Date Activated Date Inactivated Comments 11/19/2018 4:25 AM 11/19/2018 8:56 PM Care Teams Drier Attendant Relationship Specialty Start Date End Date Eduardo Cheney MD [address] [place] [address] PCP - General INTERNAL MEDICINE 12/07/18
--- OUTSIDE RECORDS SUMMARY | 2025-07-17 15:28 | XMS_ITS | Encounter Summary ---
Author Organization [facility] Address [address] [place] [address] Care Team Providers Care Trial Management Associate Name Role Phone None, Provider Primary Care Provider [facility] Eduardo Cheney MD Primary Care Provider Encounter Details Date Type Department Care Team (Late st Contact Info) Description 10/10/2017 Abstract [facility] CONVERSION [address] [place] [address] , Generic Conversion, Social History Tobacco Use [...] on filedocumented in this encounter Care Teams Trial Management Associate Relationship Specialty Start Date End Date None, Provider, PCP - General 11/19/18 12/06/18 Eduardo Cheney MD [address] [place] [address] PCP - General INTERNAL MEDICINE 12/07/18 documented as of this encounter
== END 2025-07-17 13:42 | disposition home or self-care (01) ==
LOC: CHSLAB 13:42
PROVIDERS: PCP Internal Medicine; Visit Provider Internal Medicine
DX: R31.29 Other microscopic hematuria (principal)
CPT/HCPCS: 81001; 88112

== ENCOUNTER 2025-07-18 10:33 | Outpatient (CLI) | payer MEDICARE, SELFPAY ==
[2025-07-18 10:49] LABS: Add Urine Microscopic? NO; Appearance Urine Clear (Clear); Glucose Urine UA Negative (Negative); Leukocyte Esterase Ur Negative (Negative); Nitrate Urine Negative (Negative); Specific Grav Ur 1.010 (1.010-1.020)
--- OUTSIDE RECORDS SUMMARY | 2025-07-18 11:10 | XMS_ITS | Clinical Summary ---
Author Organization [facility] Address [address] [place] [address] Care Team Providers Care Transportation Attendant Name Role Phone Eduardo Cheney MD Primary Care Provider [phone] Source Comments [facility],non-owned Affiliates and Associated Physician Practices is amultiple site organization consisting of ambulatory clinics and hospital sitesin [place], [place], [place] and [place]. This disclosure is being madepursuant to the Care Everywhere program and may not contain all information available regarding this patient. Last updated 18.[facility] Allergies No known active allergies Medications * Be aware that medications may not be up to date on this document. Alwaysverify current medications with the patient. Multiple Vitamins-[place] als (Multivitamin Women) TABS Take 1 tablet [...] and heating? 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 Sexual Orientation Not on file Last Filed [...] 64.9 kg (143 lb) 06/24/2023 11:14 AM ACTUARIAL SCIENCE TEACHER Height 152.4 cm (5') 02/11/2023 12:09 PM [...] this topic Medical Devices Implanted Type Area Machine Fitter Device Identifier Shelf Expiration Date Model / Serial / Lot Screw 3.5mm 6mm 44mm 2.5mm Ft Slf-Tap Implanted:Qty: 1 on 12/21/2022 by Robin Machado DO at [facility] Right: Leg [employer] 204.844 / / Screw 3.5mm 6mm 75mm Slf-Tap Sm Hex Sckt Implanted:Qty: 2 on 12/21/2022 by Robin Machado DO at [facility] Right: Leg [employer] 204.875 / / Plate 1/3 Tblr [id number] 7 Hl Colr Ss Implanted:Qty: 1 on 12/21/2022 by Robin Machado DO at [facility] Right: Leg [employer] 241.371 / / 3.5 Mm Crtx Screw/Low Prof Hd/ Self Tapping/Strdrv/ 52 Mm Implanted:Qty: 1 on 12/21/2022 by Robin Machado DO at [facility] Right: Leg 06/25/2025 02.206.252S / / [id number] Nail Im 11.5mm 18cm Trgn Intrtn Implanted:Qty: 1 on 12/25/2022 by Pool Joe MD at [facility] [employer] 01/22/2032 [id number] / / [id number] Screw 5mm 30mm Lopro Intnl Hex Fem Trgn Implanted:Qty: 1 on 12/25/2022 by Pool Joe MD at [facility] [employer] 02/04/2032 [id number] / / [id number] Kit Screw 95mm 11.5mm 7mm Intrtn Troch Implanted:Qty: 1 on 12/25/2022 by Pool Joe MD at [facility] [employer] 07/14/2032 [id number] / / [id number] Explanted Type Area Machine Fitter Device Identifier Shelf Expiration Date Model / Serial / Lot Screw 3.5mm 6mm 50mm Slf-Tap Sm Hex Sckt Explanted:Qty: 1 on 12/21/2022 by Robin Machado DO at [facility] Right: Leg [employer] 204.850 / / Screw 3.5mm 6mm 42mm Ft Cortx Slf-Tap Sm Explanted:Qty: 1 on 12/21/2022 at [facility] Right: Leg Synthes [facility] 204.842 / / Insurance MEDICARE MEDICARE SUPPLEMENT PAYOR GENERIC Advance Directives * Full Code (Latest Code Status on File) Date Activated Date Inactivated Comments 12/25/2022 2:55 AM 12/27/2022 9:57 PM * Full Code Date Activated Date Inactivated Comments 12/21/2022 2:48 AM 12/23/2022 7:53 PM Care Teams Transportation Attendant Relationship Specialty Start Date End Date Eduardo Cheney MD [address] [place] [address] PCP - General Internal Medicine 12/21/22
--- OUTSIDE RECORDS SUMMARY | 2025-07-18 11:10 | XMS_ITS | Encounter Summary ---
Author Organization [facility] Address [address] [place] [address] Care Team Providers Care Silviculture Teacher Name Role Phone None, Provider Primary Care Provider [facility] Eduardo Cheney MD Primary Care Provider [phone] Encounter Details Date Type Department Care Team (Late st Contact Info) Description 10/10/2017 Abstract [facility] CONVERSION [address] [place] [address] , Generic Conversion, Social History Tobacco Use [...] on filedocumented in this encounter Care Teams Silviculture Teacher Relationship Specialty Start Date End Date None, Provider, PCP - General 11/19/18 12/06/18 Eduardo Cheney MD [address] [place] [address] PCP - General INTERNAL MEDICINE 12/07/18 documented as of this encounter
--- OUTSIDE RECORDS SUMMARY | 2025-07-18 11:10 | XMS_ITS | Clinical Summary ---
Author Organization [facility] Address [address] [place] [address] Care Team Providers Care Handmade Tile Artist Name Role Phone Eduardo Cheney MD Primary Care Provider [phone] Allergies No known active allergies Medications metoprolol [...] Comments Blood Pressure 124/82 09/08/2019 1:22 PM VEST FINISHER Pulse 64 09/08/2019 1:22 PM VEST FINISHER EKG Temperature 36.8 C (98.2 F) 11/19/2018 4:30 PM CDT Respiratory Rate 16 09/08/2019 1:22 PM VEST FINISHER Oxygen Saturation 98% 11/19/2018 4:30 PM CDT Inhaled Oxygen Concentration - - Weight 65 kg (143 lb 6.4 oz) 09/08/2019 1:22 PM VEST FINISHER Height 152.4 cm (5') 09/08/2019 1:22 PM VEST FINISHER Body Mass Index 28.01 09/08/2019 1:22 PM VEST FINISHER Plan of Treatment Health Maintenance Due Date [...] 4:25 AM 11/19/2018 8:56 PM Care Teams Handmade Tile Artist Relationship Specialty Start Date End Date Eduardo Cheney MD [address] [place] [address] PCP - General INTERNAL MEDICINE 12/07/18
== END 2025-07-18 10:34 | disposition home or self-care (01) ==
LOC: CHSLAB 10:35
PROVIDERS: PCP Internal Medicine; Visit Provider Internal Medicine
DX: N39.0 Urinary tract infection, site not specified (principal)
CPT/HCPCS: 81003; 87086